=== PATIENT | female | born 1990 | race Caucasian/White ===

== ENCOUNTER 2025-05-19 14:29 | Outpatient (CLI) | payer BC, SELFPAY ==
--- OUTSIDE RECORDS SUMMARY | 2025-05-19 14:32 | XMS_ITS | Clinical Summary ---
Author Organization [facility] Address [address] [place] [address] Phone Care Team Providers Care Disk Recordist Name Role Phone John Painter MD Primary Care Provider [phone] Griffin Steve MD Unavailable Allergies Active Allergy Reactions Criticality Noted Date Comments Doxycycline Vomiting 05/16/2025 Lisinopril Diarrhea 07/24/2022 AFFECTED YOUR MOOD Metoprolol Itching,Other (see Comments) 05/16/2025 Constant coughing Medications albuterol 108 (90 Base) MCG/ACT Aerosol Solution take 2 Puffs by inhalation every 6 hours as needed for Wheezing or Cough. 1 g 1 11/18/19 24 Active fluticasone (FLONASE) 50 MCG/ACT Suspension 1 [place] by Nasal route daily. Use in each nostril as directed. 16 g 09/26/20 24 Active famotidine (PEPCID) 20 MG TabletIndicatio ns:Gastroesopha geal reflux disease, unspecified whether esophagitis present Take 1 Tablet by mouth 2 times daily. 90 Tablet 3 11/15/19 25 Active Additional Information Patient not taking.Reported on 05/17/2025 desipramine (NOPRAMIN) 10 MG Tablet TAKE 1 TABLET BY MOUTH EVERY NIGHT 30 Tablet 2 12/12/19 25 Active Additional Information Patient not taking.Reported on 05/17/2025 valACYclovir (VALTREX) 1 GM TabletIndicatio ns:Herpes simplex infection Take 1 Tablet by mouth daily. 90 Tablet 3 01/11/20 25 Active hydroCHLOROthia zide (MICROZIDE) 12.5 MG CapsuleIndicati ons:Primary hypertension Take 1 Capsule by mouth daily. 90 Capsule 3 01/11/20 25 Active Breo Ellipta 200-25 MCG/ACT AEROSOL POWDER, BREATH ACTIVATED take 1 Puff by inhalation daily. 02/25/20 25 Active triamcinolone (KENALOG) 0.1 % CreamIndication s:Rash/skin eruption Application Site: Apply to affected area twice daily for fourteen days 45 g 03/24/20 Active Additional Information Patient not taking.Reported on 05/17/2025 azelastine (ASTELIN) 0.1 % Solution 05/15/20 Active doxycycline hyclate (VIBRAMYCIN) 100 MG Capsule 05/15/20 25 Active ondansetron (ZOFRAN-ODT) 4 MG TABLET DISPERSIBLEIndi cations:Nausea Take 1 Tablet by mouth every 8 hours as needed for Nausea - 1st line. 10 Tablet 05/17/20 25 Active hydrOXYzine (ATARAX) 25 MG TabletIndicatio ns:Anxiety TAKE 1 TABLET BY MOUTH EVERY 8 HOURS NEEDED FOR ANXIETY 30 Tablet 05/18/20 25 Active hydrOXYzine (ATARAX) 25 MG TabletIndicatio ns:Anxiety Take 1 Tablet by mouth every 8 hours as needed for Anxiety. 30 Tablet 01/11/20 25 025 Discontinued Active Problems Problem Noted Date Diagnosed Date URI, acute 09/26/2024 Tick bite of calf, left, initial encounter 05/04 Otitis media 06/26/2021 Epigastric pain 04/22/2021 Irritable bowel syndrome wit h both constipation and diarrhea 09/28/2020 Vitamin D deficiency 09/15/2020 B12 deficiency 09/15/2020 Hyperlipidemia 09/15/2020 Tobacco abuse 09/13/2020 Hyperglycemia 09/13/2020 Obesity (BMI 30-39.9) 09/13/2020 Genital herpes simplex 09/13/2020 Genital lesion, female 09/13/2020 Gastroesophageal reflux disease 09/13/2020 Mild intermittent asthma 09/13/2020 Pain of upper abdomen 09/13/2020 Tachycardia 09/13/2020 Herpes simplex type 2 infection 07/14/2017 Dysuria 06/28/2013 Thoracic outlet syndrome 05/03/2013 HTN (hypertension) 12/30/2012 Obesity Labile blood pressure Carpal tunnel syndrome Overview (04/27/2012): Right wrist Encounters Date Type Department Care Team Description 05/17/2025 9:00 AM CDT Office Visit [facility] [place] [address] Gertrude Coon, GROUND WATER CONTRACTOR, CUSTOMER SOLUTIONS SUPERVISOR Increased frequency of urination (Primary Dx); Nausea; Burning with urination Discharge Disposition: Discharged to home or Selfcare 05/17/2025 [facility] [place] [address] John Painter MD Medication Refill 05/17/2025 Travel 05/16/2025 Nurse Triage [facility] [address] [place] [phone] John Painter MD Advice Only; Nasal Congestion; Urinary Frequency 03/24/2025 9:30 AM CDT Office Visit [facility] [address] [place] [address] Eugenie Ny, GROUND WATER CONTRACTOR, CUSTOMER SOLUTIONS SUPERVISOR Rash/skin eruption (Primary Dx); Insect bite, initial encounter Discharge Disposition: Discharged to home or Selfcare 03/24/2025 Travel from Last 3 Months Immunizations Immunization Administration Dates Next Due Covid-19, Mrna, Lnp-s, Pf, 3 0 Mcg/0.3 Ml Dose (Waveborn) 06/22/2021 DTAP VACCINE 06/08/1996, 2,07/27/1991,1990,03/17/1991 HIB Vaccine (PRP-T) 06/26/1992, 1,05/25/1991,1990 Hepatitis B Vaccine 10/21/2001,05/25/2001,2000 Influenza Vaccine, Quadrivalent, PF 09/13/2020 Influenza, Recombinant, Quadrivalent,injectable, Pf 12/11/2021 MMR Vaccine 06/08/1996,06/26/1992 OPV 06/08/1996, 2,05/25/1991,1990 Family History Medical History Relation Name Comments Cancer Father Kedar Fitch skin Diabetes Father Kedar Fitch Glaucoma Father Kedar Fitch Hypertension Father Kedar Fitch Other-comment Father Kedar Fitch ANIRIDIA Thyroid Disease Father Kedar Fitch Heart Disease Maternal Grandfather Cancer Maternal Grandmother Nika [place] breast Cancer Mother Hortencia Fitch ovarian Hypertension Mother Hortencia Fitch Stroke Mother Hortencia Fitch Thyroid Disease Mother Hortencia Fitch Heart Disease Paternal Grandfather Cancer Paternal Grandmother Nika Fitch lung ca ncer Relation Name Status Comments Father Kedar Fitch Alive Maternal Grandfather Maternal Grandmother Nika [place] Mother Hortencia Fitch Alive Paternal Grandfather Paternal Grandmother Nika Fitch Social History Tobacco Use Types Packs/Day Years Used Date Smoking Tobacco: Every Day Cigarettes 0.3 12 Smokeless Tobacco: Never Tobacco Cessation:Ready to Q uit: No; Counseling Given: Yes Alcohol Use Standard Drinks/Week Comments Yes 0 (1 standard drink = 0.6 oz pur e alcohol) rarely [employer] Utilities Answer Date Recorded In the past 12 months has [employer], gas, oil, or water AIT threatened to shut off services in your home? Yes 12/12/2024 Social Connection and Isolation Panel Answer Date Recorded In a typical week, how many times do you talk on the phone with family, friends, or neighbors? More than three times a week 12/12/2024 How often do you get togethe r with friends or relatives? Three times a week 12/12/2024 How often do you attend chur ch or pentecostal services? Never 12/12/2024 Do you belong to any clubs o r organizations such as anglican groups, unions, fraternal or athletic groups, or school groups? Yes 12/12/2024 How often do you attend meet ings of the clubs or organizations you belong to? 1 to 4 times per year 12/12/2024 Are you , , di vorced, , never , or living with a partner? Never 12/12/2024 AUDIT-C Answer Date Recorded Q1: How often do you have a drink containing alc ohol? Monthly or less 12/12/2024 Q2: How many drinks containi ng alcohol do you have on a typical day when you are drinking? 1 or 2 12/12/2024 Q3: How often do you have si x or more drinks on one occasion? Never 12/12/2024 Overall Financial Resource Strain (CARDIA) Answe r Date Recorded How hard is it for you to pa y for the very basics like food, housing, medical care, and heating? Somewhat hard 12/12/2024 PHQ-2 Answer Date Recorded Total Score - Questions 1-9 0 10/27 [facility] - Occupational Stress Questionnaire Answer Date Recorded Do you feel stress - tense, restless, nervous, or anxious, or unable to sleep at night because your mind is troubled all the time - these days? Only a little 12/12/2024 Exercise Vital Sign Answer Date Recorde d On average, how many days pe r week do you engage in moderate to strenuous exercise (like a brisk walk)? 2 days 12/12/2024 On average, how many minutes do you engage in exercise at this level? 40 min 12/12/2024 Hunger Vital Sign Answer Date Recorded Within the past 12 months, y ou worried that your food would run out before you got the money to buy more. Never true 12/12/19 25 Within the past 12 months, t he food you bought just didn't last and you didn't have money to get more. Never true 12/12/2024 PRAPARE - Transportation Answer Date Re corded In the past 12 months, has l ack of transportation kept you from medical appointments or from getting medications? No 11/26 In the past 12 months, has l ack of transportation kept you from meetings, work, or from getting things needed for daily living? No 12/12/2024 Housing Stability Vital Sign Answer Perfecto e Recorded In the last 12 months, was t here a time when you were not able to pay the mortgage or rent on time? Patient declined 02/16/20 24 Number of Places Lived in the Last Year Not on f ile 02/16/2024 In the last 12 months, was t here a time when you did not have a steady place to sleep or slept in a usp (including now)? Patient declined 02/16/2024 Housing Stability Vital Sign Answer Perfecto e Recorded In the last 12 months, was t here a time when you were not able to pay the mortgage or rent on time? Yes 12/12/2024 In the past 12 months, how m any times have you moved where you were living? 1 12/12/2024 At any time in the past 12 m [facility], were you homeless or living in a usp (including now)? No 12/12/2024 Education Answer Date Recorded What is the highest level of school you have completed or the highest degree you have received? 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 Gender Identity Not on file Sexual Orientation Not on file Last Filed Vital Signs Vital Sign Reading Time Taken Comments Blood Pressure 136/88 05/17/2025 9:04 AM CDT Pulse 92 05/17/2025 9:04 AM CDT Temperature 36.4 C (97.5 F) 05/17/2025 9:04 AM CDT Respiratory Rate 18 05/17/2025 9:04 AM CDT Oxygen Saturation 98% 05/17/2025 9:04 AM CDT Inhaled Oxygen Concentration - - Weight 96.5 kg (212 lb 12.8 oz) 05/17/2025 9:04 AM CDT Height 160 cm (5' 3) 05/17/2025 9:04 AM CDT Body Mass Index 37.7 05/17/2025 9:04 AM CDT Plan of Treatment Upcoming Encounters Date Type Department Care Team (Late st Contact Info) Description 07/31/2025 1:00 PM CDT Office Visit [facility] [place] [address] [place] [phone] John Painter MD [address] [address] Health Maintenance Due Date Last Done Comments DTaP/Tdap/Td Immunization (6 - Tdap) 2001 06/08/1996, 06/26/1992, 07/27/1991, Additional history exists Human Papillomavirus (HPV) Immunization (1 - 3-dose series) 2005 Pneumococcal Immunization Combined (1 of 2 - PCV) 2009 Pap Smear 2011 Cervical Cancer Screening (CCS) 2020 HPV/Cotest 2020 SARS-COV-2 Immunization (3 - season) 2024 07/13/2021, 06/22/2021 Influenza Immunization (#1) 2025 12/11/2021, 1 11/13/2019 Respiratory Syncytial Virus (RSV) Immunization (Adult) (1 - 1-dose 75+ series) 2065 Hepatitis B Immunization Completed 001, 05/25/2001, 04/20/2001 Hepatitis C Virus (HCV) Screening Completed 06/24/2023 Meningococcal Immunization (ACWY) Aged Out No longer eligible based on patient's age to complete this topic Rotavirus Immunization Aged Out No lo nger eligible based on patient's age to complete this topic Procedures Procedure Name Priority Date/Time Associated Diagnosis Comments URINALYSIS REFLEX IF INDICATED BY ABNORMAL RESULTS Routine 05/17/2025 10:29 AM CDT Burning with urination THYROID SCREEN WITH REFLEX Routine 05/17/2025 9:37 AM CDT Fatigue, unspecified type CBC WITH AUTO DIFFERENTIAL Routine 05/17/2025 9:37 AM CDT Fatigue, unspecified type FOLIC ACID (FOLATE) Routine 05/17/2025 9 :37 AM CDT Fatigue, unspecified type VITAMIN B12 Routine 05/17/2025 9:37 AM CDT Fatigue, unspecified type VITAMIN D, 25 HYDROXY TOTAL Routine 05/17/2025 9:37 AM CDT Fatigue, unspecified type THYROID SCREEN WITH REFLEX Routine 05/17/2025 9:37 AM CDT Fatigue, unspecified type COMPLETE BLOOD COUNT (CBC) WITH DIFF Routine 05/17/2025 9:37 AM CDT Fatigue, unspecified type CMP (COMPREHENSIVE METABOLIC PANEL) Routine 05/17/2025 9:37 AM CDT Fatigue, unspecified type HEPATITIS C ANTIBODY Routine 06/24/2023 3:12 PM CDT Exposure to STD from Last 3 Months or Most Recently Relevant to Health Maintenance Results * URINALYSIS REFLEX IF INDICATED BY ABNORMAL RESULTS (05/17/2025 10:29 AM CDT) SPECIFIC GRAVITY 1.010 1.003 - 1.030 05/17/2025 12:37 PM CDT [facility] URINE PH 8.0 5.0 - 9.0 05/17/2025 12:37 PM CDT [facility] WBC ESTERASE Negative Negative 05/17/2025 12:37 PM CDT [facility] NITRITE Negative Negative 05/17/2025 12:37 PM CDT [facility] PROTEIN, RANDOM URINE Negative Negative 05/17/2025 12:37 PM CDT [facility] URINE GLUCOSE, QUAL Negative Negative 05/17/2025 12:37 PM CDT [facility] URINE KETONES Negative Negative 05/17/2025 12:37 PM CDT [facility] UROBILINOGEN Normal Normal mg/dL 05/17/2025 12:37 PM CDT [facility] URINE BLOOD Negative Negative makayla/ul 05/17/2025 12:37 PM CDT [facility] URINALYSIS COLOR Light Yellow 2024 12:37 PM CDT [facility] URINALYSIS CLARITY Clear 05/17/2025 12:37 PM CDT [facility] Urine URINE SPECIMEN OBTAINED BY CLEAN CATCH PROCEDURE / Unknown Non-Phlebotomy Collection / Unknown 05/17/2025 10:29 AM CDT 05/17/2025 10:29 AM CDT January N Jaymie GROUND WATER CONTRACTOR, CUSTOMER SOLUTIONS SUPERVISOR URINE ORDERABLES Final Re sult Performing Organization Address City/[facility] Co de Phone Number [facility] [address] [place] [address] * VITAMIN D, 25 HYDROXY TOTAL (05/17/2025 9:37 AM CDT) VITAMIN D, 25 HYDROX 21.1 ng/mL 05/17/2025 10:43 AM CDT [facility] Blood Venipuncture / Unknown 05/17/2025 9:37 AM CDT 05/17/2025 9:48 AM CDT Narrative [facility] - 05/17/2025 10:43 AM CDT Published reference ranges for Vitamin D vary depending on time and place and method of testing, and on patient's age, sex, ethnicity and levels of other measured analytes such as parathormone, calcium and phosphorus. The result should be evaluated in conjunction with clinical findings and suspicions. [place] of [employer] and Endocrine Clinical Practice Guidelines: Status Vitamin D levels (ng/mL) Deficient <=20 At risk of inadequacy 21-29 Sufficient 30-100 Centers of Disease Control and Prevention Guidelines: Status Vitamin D levels (ng/mL) Deficient <13 At risk of inadequacy 13-19 Sufficient 20-50 Possibly harmful >50 References: [place] [employer], 2010 Dietary reference intakes for calcium and vitamin D. [place]: The National Academies Press. Davidson M, Jose N, Lois MÁRQUEZ, et al., Evaluation, treatment, and prevention of Vitamin D deficiency: an Endocrinology Clinical Practice Guideline. JCEM 2011 96: 7 4910-3304. Ned A, Sahil C, Sissy D, et al., Vitamin D Status: [place], 2251-0130, [facility] data brief, no. 59, MD [place]: National Center for Health Statistics. 2011. us Eugenie Ny GROUND WATER CONTRACTOR, CUSTOMER SOLUTIONS SUPERVISOR CHEMISTRY ORDERABLES Fin al Result [facility] [address] [place] [address] * THYROID SCREEN WITH REFLEX (05/17/2025 9:37 AM CDT) TSH 0.922 0.300 - 5.000 mIU/L 05/17/2025 10:33 AM CDT [facility] Blood Venipuncture / Unknown 05/17/2025 9:37 AM CDT 05/17/2025 9:48 AM CDT Eugenie Ny GROUND WATER CONTRACTOR, CUSTOMER SOLUTIONS SUPERVISOR CHEMISTRY ORDERABLES Fin al Result Performing Organization Address [facility] Co de Phone Number [facility] [address] [place] [address] * (ABNORMAL) CBC WITH AUTO DIFFERENTIAL (05/17/2025 9:37 AM CDT) Pathologist [facility] WBC 12.64(H) 4.00 - 12.00 10(3)/mcL 05/17/2025 9:52 AM CDT [facility] RBC 4.84 3.80 - 5.30 10(6)/[facility] 05/17/2025 9:52 AM CDT [facility] HEMOGLOBIN (HGB) 14.1 12.0 - 15.8 g/dL 05/17/2025 9:52 AM CDT [facility] HEMATOCRIT (HCT) 43.2 36.0 - 47.0 % 05/17/2025 9:52 AM CDT [facility] MCV 89.3 82.0 - 96.0 fL 05/17/2025 9:52 AM CDT [facility] MCH 29.1 26.0 - 34.0 pg 05/17/2025 9:52 AM CDT [facility] MCHC 32.6 31.0 - 36.0 g/dL 05/17/2025 9:52 AM CDT [facility] PLATELET COUNT 379 140 - 440 10(3)/[facility] 05/17/2025 9:52 AM CDT [facility] RDW 15.9(H) 11.8 - 15.5 % 05/17/2025 9:52 AM CDT [facility] MPV 9.8 9.7 - 12.4 fL 05/17/2025 9:52 AM CDT [facility] NEUTROPHILS 70.4 47.0 - 73.0 % 05/17/2025 9:52 AM CDT [facility] LYMPHOCYTES 23.2 18.0 - 42.0 % 05/17/2025 9:52 AM CDT [facility] MONOCYTES 4.5 4.0 - 12.0 % 05/17/2025 9:52 AM CDT [facility] EOSINOPHILS 1.2 0.0 - 5.0 % 05/17/2025 9:52 AM CDT [facility] BASOPHILS 0.2 0.0 - 1.0 % 05/17/2025 9:52 AM CDT [facility] IMMATURE GRANULOCYTE 0.5(H) 0.0 - 0.4 % 05/17/2025 9:52 AM CDT [facility] Comment:Immature Granulocyte s includes Metamyelocytes, Myelocytes, and Promyelocytes. ABSOLUTE NEUTROPHILS 8.90(H) 1.60 - 7.70 10(3)/[facility] 05/17/2025 9:52 AM CDT [facility] ABSOLUTE LYMPHOCYTES 2.93 1.30 - 3.20 10(3)/[facility] 05/17/2025 9:52 AM CDT [facility] ABSOLUTE MONOCYTES 0.57 0.20 - 1.00 10(3)/[facility] 05/17/2025 9:52 AM CDT [facility] ABSOLUTE EOSINOPHIL 0.15 0.00 - 0.40 10(3)/[facility] 05/17/2025 9:52 AM CDT [facility] ABSOLUTE BASOPHILS 0.03 0.00 - 0.10 10(3)/[facility] 05/17/2025 9:52 AM CDT [facility] ABSOLUTE IMMATURE GRANULOCYTE 0.06(H) 0.00 - 0.03 10 (3) mcL. 05/17/2025 9:52 AM CDT [facility] NRBC PER 100 WBC 0 05/17/20 9:52 AM CDT [facility] Blood Venipuncture / Unknown 05/17/2025 9:37 AM CDT 05/17/2025 9:49 AM CDT Eugenie Ny GROUND WATER CONTRACTOR, CUSTOMER SOLUTIONS SUPERVISOR HEMATOLOGY ORDERABLES Fi nal Result Performing Organization Address City/[facility]/ZIP Co de Phone Number [facility] [address] [place] [address] * VITAMIN B12 (05/17/2025 9:37 AM CDT) VITAMIN B12 363 213 - 816 pg/mL 05/17/2025 10:43 AM CDT [facility] Blood Venipuncture / Unknown 05/17/2025 9:37 AM CDT 05/17/2025 9:48 AM CDT Eugenie Ny GROUND WATER CONTRACTOR, CUSTOMER SOLUTIONS SUPERVISOR CHEMISTRY ORDERABLES Fin al Result Performing Organization Address City/[facility]/ZIP Co de Phone Number [facility] [address] [place] [address] * FOLIC ACID (FOLATE) (05/17/2025 9:37 AM CDT) FOLATE 10.6 7.0 - 31.4 ng/mL 05/17/2025 10:43 AM CDT [facility] IS THE PATIENT REQUIRED TO BE FASTING? No 05/17/2025 10:43 AM CDT [facility] Blood Venipuncture / Unknown 05/17/2025 9:37 AM CDT 05/17/2025 9:48 AM CDT Eugenie Ny GROUND WATER CONTRACTOR, CUSTOMER SOLUTIONS SUPERVISOR CHEMISTRY ORDERABLES Fin al Result [facility] [address] [place] [address] * (ABNORMAL) CMP (COMPREHENSIVE METABOLIC PANEL) (05/17/2025 9:37 AM CDT) SODIUM 139 136 - 145 mmol/L 05/17/2025 10:10 AM CDT [facility] POTASSIUM 3.9 3.5 - 5.1 mmol/L 05/17/2025 10:10 AM CDT [facility] CHLORIDE 104 98 - 107 mmol/L 05/17/2025 10:10 AM CDT [facility] CO2, VENOUS 26 22 - 30 mmol/L 05/17/2025 10:10 AM CDT [facility] ANION GAP 12.9 <18.0 mmol/L 05/17/2025 10:10 AM CDT [facility] GLUCOSE 94 70 - 99 mg/dL 05/17/2025 10:10 AM CDT [facility] BUN 7 5 - 18 mg/dL 05/17/2025 10:10 AM CDT [facility] CREATININE, BLOOD 0.56(L) 0.60 - 1.00 mg/dL 05/17/2025 10:10 AM CDT [facility] BUN/CREATININE RATIO 13 12 - 20 ratio 05/17/2025 10:10 AM CDT [facility] TOTAL PROTEIN 7.6 6.0 - 8.0 g/dL 05/17/2025 10:10 AM CDT [facility] ALBUMIN 4.5 3.5 - 5.0 g/dL 05/17/2025 10:10 AM CDT [facility] A/G RATIO 1.5 1.0 - 2.2 05/17/2025 10:10 AM CDT [facility] CALCIUM 9.1 8.7 - 10.5 mg/dL 05/17/2025 10:10 AM CDT [facility] T BILI 0.3 0.2 - 1.2 mg/dL 05/17/2025 10:10 AM CDT [facility] SGOT (AST) 20 <43 U/L 05/17/2025 10:10 AM CDT [facility] SGPT (ALT) 24 <56 U/L 05/17/2025 10:10 AM CDT [facility] ALKALINE PHOSPHATASE 70 40 - 150 U/L 05/17/2025 10:10 AM CDT [facility] IS THE PATIENT REQUIRED TO BE FASTING? No 05/17/2025 10:10 AM CDT [facility] GFR, ESTIMATED >60 >=60 05/17/2025 10:10 AM CDT [facility] Comment: Creatinine Clearance is the preferred criteria for selecting drug dose adjustments in renally impaired patients. The GFR is provided as additional pertinent clinical information. GFR is reported in mL/min/1.73 sq m. Calculation based on the Chronic Kidney Disease Epidemiology Collaboration (CKD- EPI) equation refit without adjustment for race. GFR, EST. >60 >=60 025 10:10 AM CDT [facility] GFR, EST. NONAFRICAN >60 >=60 05/17/2025 10:10 AM CDT [facility] Blood Venipuncture / Unknown 05/17/2025 9:37 AM CDT 05/17/2025 9:48 AM CDT us Eugenie Ny GROUND WATER CONTRACTOR, CUSTOMER SOLUTIONS SUPERVISOR CHEMISTRY ORDERABLES Fin al Result [facility] [address] [place] [address] * HEPATITIS C ANTIBODY (06/24/2023 3:12 PM CDT) hepatitis C antibody 0.11 <1 S/[facility] ARCH [id number] B 06/24/2023 11:07 PM CDT [facility] Comment: Signal/Cutoff ratio < 0.79 is Nondetected Signal/Cutoff ratio 0.80-0.99 is Grayzone Signal/Cutoff ratio > 0.99 is Detected Supplemental assays are recommended if signal/cutoff ratio is >/=1.00. Signal/cutoff ratio result >/= 5.00 is 97% predictive of positivity for recombinant immunoblot assay (RIBA) and will be reported to the [place] Department of Public Health as required. Blood Venipuncture / Unknown 06/24/2023 3:12 PM CDT 06/24/2023 4:48 PM CDT us Thierry Zuñiga APRN, CUSTOMER SOLUTIONS SUPERVISOR CHEMISTRY ORDERA BLES Final Result [facility] [address] [place] [address], from Last 3 Months or Most Recently Relevant to Health Maintenance Insurance [facility] Advance Directives * Full Code (Latest Code Status on File) Date Activated Date Inactivated Comments 12/30/2012 4:06 PM 11/03/2017 8:20 AM Care Teams Disk Recordist Relationship Specialty Start Date End Date John Painter MD #[address] [address] PCP - General Family Medicine 09/13/20 Griffin Steve MD [id number] [address] Consulting Physician General Surgery 03/04/24
--- OUTSIDE RECORDS SUMMARY | 2025-05-19 14:32 | XMS_ITS | Encounter Summary ---
Author Organization [facility] Address [address] [place] [address] Phone Care Team Providers Care Qm Nurse Name Role Phone John Painter MD Primary Care Provider +1 -[phone] Griffin Steve MD Unavailable +1- [phone] Reason for Visit * Reason Comments Medication Refill Encounter Details Date Type Department Care Team (Late Contact Info) Description 02/28/2022 [facility]ill [facility] #2 [place] [address] John Painter MD #[address] [address] Medication Refill Social History Tobacco Use Types Packs/Day Years Used Date Smoking Tobacco: Every Day Cigarettes 0.5 12 Smokeless Tobacco: Never Alcohol Use Standard Drinks/Week Comments Yes 0 (1 standard drink = 0.6 oz pur e alcohol) rarely Sexually Active Control Partners Comments Yes Condom, Male Condom Male Comments No Sex and Gender Information Value Date Recorded Sex Assigned at Not on file 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 Gender Identity Not on file Sexual Orientation Not on file documented as of this encounter Plan of Treatment Upcoming Encounters Date Type Department Care Team (Late st Contact Info) Description 07/31/2025 1:00 PM CDT Office Visit [facility] - Family [facility] #2 [place] [address] John Painter MD #2 [facility] [address] [place] [address] documented as of this encounter Visit Diagnoses Not on filedocumented in this encounter Additional Health Concerns Assessment Noted Time PHQ-9 Depression Total Score: 0 07/10/20 17 1:18 PM CDT documented as of this encounter Care Teams Qm Nurse Relationship Specialty Start Date End Date John Painter MD #2 [facility] [address] [place] [address] PCP - General Family Medicine 09/13/20 Griffin Steve MD #2 [facility] [address] [place] [address] Consulting Physician General Surgery 03/04/24 documented as of this encounter
--- OUTSIDE RECORDS SUMMARY | 2025-05-19 14:32 | XMS_ITS | Referral Summary ---
Author Organization [facility] Address [address] [place] [address] Care Team Providers Care Bobbin Collector Name Role Phone John Painter MD Primary Care Provider [phone] [phone] Allergies No known active allergies Medications No known medications Social History Tobacco Use Types Packs/Day Years Used Date Smoking Tobacco: Never Assessed Comments No Sex and Gender Information Value Date Recorded Sex Assigned at Not on file Legal Sex Female 8:24 AM CDT Gender Identity Not on file Sexual Orientation Not on file Last Filed Vital Signs Vital Sign Reading Time Taken Comments Blood Pressure 147/84 07/30/2021 1:00 PM CDT Pulse 75 07/30/2021 1:00 PM CDT Temperature 36.6 C (97.9 F) 07/30/2021 8:26 AM CDT Respiratory Rate 25 07/30/2021 1:00 PM CDT Oxygen Saturation 98% 07/30/2021 1:00 PM CDT Inhaled Oxygen Concentration - - Weight 86.2 kg (190 lb) 07/30/2021 8:27 AM CDT Height 160 cm (5' 3) 07/30/2021 8:27 AM CDT Body Mass Index 33.66 07/30/2021 8:27 AM CDT Plan of Treatment Not on file Insurance [facility] Care Teams Bobbin Collector Relationship Specialty Start Date End Date John Painter MD [address] [place] [address] PCP - General 07/30/21
--- OUTSIDE RECORDS SUMMARY | 2025-05-19 14:32 | XMS_ITS | Clinical Summary ---
Author Organization [facility] Address [address] [place] [address] Care Team Providers Care Spray Dyer Name Role Phone John Painter MD MPH Primary Care Provider +1 -[phone] Social History Tobacco Use Types Packs/Day Years Used Date Smoking Tobacco: Never Assessed Comments Unknown Sex and Gender Information Value Date Recorded Sex Assigned at Not on file Legal Sex Female 4:43 PM EDT Gender Identity Not on file Sexual Orientation Not on file Plan of Treatment Health Maintenance Due Date Last Done Comments Hepatitis B Vaccine (1 of 3 - 19+ 3-dose series) 2009 Influenza Vaccine (#1) 2025 Pneumococcal Vaccine: Peds ( 0 to 5 Years) and At-Risk Patients (6 to 49 Years) Aged Out No longer eligible b ased on patient's age to complete this topic Insurance [facility] [place] Care Teams Spray Dyer Relationship Specialty Start Date End Date John Painter MD MPH [address] [place] [address] PCP - General Family Medicine 07/20/24
--- OUTSIDE RECORDS SUMMARY | 2025-05-19 14:32 | XMS_ITS | Encounter Summary ---
Author Organization [facility] Address [address] [place] [address] Phone Care Team Providers Care Health Record Technician Name Role Phone John Pianter MD Primary Care Provider [phone] [phone] Griffin Steve MD Unavailable [phone]- [phone] Reason for Visit * Reason Comments Medication Refill Encounter Details Date Type Department Care Team (Late st Contact Info) Description 12/09/2024 Refill [facility] - Family Medicine [facility] #2 [place] [address] Eugenie Ny, ACCOUNT CONSULTANT, SPORTS EQUIPMENT RACKER #2 [place] [address] Medication Refill Social History Tobacco Use Types Packs/Day Years Used Date Smoking Tobacco: Every Day Cigarettes 0.3 12 Smokeless Tobacco: Never Alcohol Use Standard Drinks/Week Comments Yes 0 (1 standard drink = 0.6 oz pur e alcohol) rarely [facility] Utilities Answer Date Recorded In the past 12 months has e electric, gas, oil, or water company threatened to shut off services in your [...] often do you attend chur ch or roman catholic services? Never 12/12/2024 Do you belong to any clubs o r organizations such as hinduism groups, unions, fraternal or athletic groups, or [...] Total Score - Questions 1-9 0 10/27 [facility] Occupat ional Health - Occupational Stress [...] place to sleep or slept in a prison (including now)? Patient declined 02/16/2024 Housing Stability [...] any time in the past 12 m [facility], were you homeless or living in a prison (including now)? No 12/12/2024 Education Answer Date Recorded What is the highest level of school you have completed or the highest degree you have received? Bachelor's degree (e.g., BA, AB, BS) 05/19/2023 Sexually Active Control Partners Comments Yes Male Condom Male Comments No Sex and Gender Information Value Date Recorded Sex Assigned at Not on file Legal Sex Female 3:17 AM RESIDENT CARE ASSISTANT Gender Identity Not on file Sexual Orientation Not on file documented as of this encounter Functional Status * AUDIT-C Score Answer Date of Assessment Author 1 12/12/2024 10:15 AM RESIDENT CARE ASSISTANT Jair Singh Ios * Q1: How often do you have a drink containing alcohol? Answer Date of Assessment Author Monthly or less 12/12/2024 10:15 AM RESIDENT CARE ASSISTANT Jair Al ton Ios * Q2: How many drinks containing alcohol do you have on a typical day when you are drinking? Answer Date of Assessment Author 1 or 2 12/12/2024 10:15 AM RESIDENT CARE ASSISTANT Jair Johnson ton Ios * Q3: How often do you have six or more drinks on one occasion? Answer Date of Assessment Author Bjorn 12/12/2024 10:15 AM RESIDENT CARE ASSISTANT [facility] Alex Childs documented as of this encounter Miscellaneous Notes * Telephone Encounter - Annie Thomason RN - 12/12/2024 8:52 AM CST Medication failed the protocol, provider to review and approve the medication order if appropriate. Requested Prescriptions Pending Prescriptions Disp Refills hydrOXYzine (ATARAX) 25 MG Tablet [Pharmacy Med Name: HYDROXYZINE HCL 25MG TABS (WHITE)] 30 Tablet 0 Sig: Take 1 Tablet by mouth every 8 hours as needed for Anxiety. Not Delegated - Off Protocol Failed - 12/12/2024 8:52 AM Failed - This refill cannot be delegated Passed - Visit with relevant provider in past 12 months or upcoming 90 days Recent Visits Date Type Provider Dept 11/15/24 Office Visit Eugenie Ny APRN, CNP [facility] 09/26/24 Telemedicine John Painter MD [facility] 09/19/24 Appointment John Painter MD [facility] 05/04/24 Telemedicine John Painter MD [facility] 03/29/24 Office Visit Thierry Zuñiga APRN, CNP [facility] 02/16/24 Office Visit Thierry Zuñiga APRN, [facility] Showing recent visits within past 365 days and meeting all other requirements Today's Visits Date Type Provider Dept 12/12/24 Appointment Eugenie Ny APRN, CLAUDIA [facility] Showing today's visits and meeting all other requirements Future Appointments Date Type Provider Dept 12/28/24 Appointment Eugenie Ny APRN, CLAUDIA [facility] Showing future appointments within next 90 days and meeting all other requirements DENT CARE ASSISTANT documented in this encounter Plan of Treatment Upcoming Encounters Date Type Department Care Team (Late st Contact Info) Description 07/31/2025 1:00 PM CDT Office Visit [facility] - Family Medicine - [place] #2 [place] [id number] John Painter MD #2 [facility] [address] [place] [address] documented as of this encounter Visit Diagnoses Diagnosis Anxiety Anxiety state, unspecified documented in this encounter Additional Health Concerns Assessment Noted Time PHQ-9 Depression Total Score: 0 11/15/19 25 3:22 PM RESIDENT CARE ASSISTANT documented as of this encounter Care Teams Health Record Technician Relationship Specialty Start Date End Date John Painter MD #2 [facility] [address] [place] [address] PCP - General Family Medicine 09/13/20 Griffin Steve MD #2 [facility] [address] [place] [address] Consulting Physician General Surgery 03/04/24 documented as of this encounter
--- OUTSIDE RECORDS SUMMARY | 2025-05-19 14:32 | XMS_ITS | Encounter Summary ---
Author Organization [facility] Address [address] [place] [address] Phone Care Team Providers Care Reconsignment Clerk Name Role Phone John Painter MD Primary Care Provider [phone] -[phone] Griffin Steve MD Unavailable [phone]- [phone] Reason for Visit * Reason Comments Medication Refill Encounter Details Date Type Department Care Team (Late st Contact Info) Description 05/06/2023 Refill [facility] [address] [place] [address] Thierry Zuñiga, COSMETICS MACHINE OPERATOR, CARBON CLEANER #[address] [address] Medication Refill Social History Tobacco Use Types [...] on file Legal Sex Female 3:17 AM IT SENIOR SOFTWARE ENGINEER JAVA Gender Identity Not on file Sexual Orientation Not on file documented as of this encounter Miscellaneous Notes * Telephone Encounter - Annie Thomason RN - 05/06/2023 2:51 PM CDT This was ordered more recently - please discontinue the acyclovir if appropriate. Medication failed the protocol, provider to review and approve the medication order if appropriate. Requested Prescriptions Pending Prescriptions Disp Refills valACYclovir (VALTREX) 1 GM Tablet [Pharmacy Med Name: VALACYCLOVIR 1GM TABLETS] 21 Tablet 0 Sig: TAKE 1 TABLET BY MOUTH THREE TIMES DAILY FOR 7 DAYS Not Delegated - Herpes Agents Protocol Failed - 05/06/2023 9:20 AM Failed - This refill cannot be delegated Failed - Active on medication list Passed - Visit with relevant provider in past 12 months or upcoming 90 days Recent Visits Date Type Provider Dept 10/06/22 Office Visit Thierry Zuñiga APRN, [facility]22 Office Visit Thierry Zuñiga APRN, CLAUD[facility] Showing recent visits within past 365 days and meeting all other requirements Future Appointments No visits were found meeting these conditions. Showing future appointments within next 90 days and meeting all other requirements documented in this encounter Plan of Treatment Upcoming Encounters Date Type Department Care Team (Late st Contact Info) Description 07/31/2025 1:00 PM CDT Office Visit [facility] Group - Family Medicine [facility] #2 [place] [address] John Painter MD #[address] [address] documented as of this encounter Visit Diagnoses Diagnosis Herpes zoster without complication documented in this encounter Additional Health Concerns Assessment Noted Time PHQ-9 Depression Total Score: 0 07/10/20 17 1:18 PM CDT documented as of this encounter Care Teams Reconsignment Clerk Relationship Specialty Start Date End Date John Painter MD #[address] [address] PCP - General Family Medicine 09/13/20 Griffin Steve MD #[address] [address] Consulting Physician General Surgery 03/04/24 documented as of this encounter
--- OUTSIDE RECORDS SUMMARY | 2025-05-19 14:32 | XMS_ITS | Encounter Summary ---
Author Organization [facility] Address [address] [place] [address] Phone Care Team Providers Care Upper Marker Name Role Phone John Painter MD Primary Care Provider +1 -[phone] Griffin Steve MD Unavailable [phone]- [phone] Reason for Visit * Reason Comments Medication Refill Encounter Details Date Type Department Care Team (Late st Contact Info) Description 12/10/2024 Refill [facility] - Family Medicine [facility] #2 [place] [address] Eugenie Ny, DIESEL ENGINE ENGINEER, LEATHER HEEL BREASTER #2 [place] [address] Medication Refill Social History Tobacco Use Types Packs/Day Years Used Date Smoking Tobacco: Every Day Cigarettes 0.3 12 Smokeless Tobacco: Never Alcohol Use Standard Drinks/Week Comments Yes 0 (1 standard drink = 0.6 oz pur e alcohol) rarely [facility] Utilities Answer Date Recorded In the past [...] often do you attend chur ch or evangelical services? Never 12/12/2024 Do you belong to any clubs o r organizations such as sabianism groups, unions, fraternal or athletic groups, or [...] Total Score - Questions 1-9 0 10/27 [facility] Occupat ional Health - [...] place to sleep or slept in a long-term (including now)? Patient declined 02/16/2024 Housing Stability [...] any time in the past 12 m [facility], were you homeless or living in a long-term (including now)? No 12/12/2024 Education Answer Date Recorded What is the highest level of school you have completed or the highest degree you have received? Bachelor's degree (e.g., BA, AB, BS) 05/19/2023 Sexually Active Control Partners Comments Yes Male Condom Male Comments No Sex and Gender Information Value Date Recorded Sex Assigned at Not on file Legal Sex Female 3:17 AM GIS ENGINEER Gender Identity Not on file Sexual Orientation Not on file documented as of this encounter Functional Status * AUDIT-C Score Answer Date of Assessment Author 1 12/12/2024 10:15 AM GIS ENGINEER Jair Singh Ios * Q1: How often do you have a drink containing alcohol? Answer Date of Assessment Author Monthly or less 12/12/2024 10:15 AM GIS ENGINEER Jair Al ton Ios * Q2: How many drinks containing alcohol do you have on a typical day when you are drinking? Answer Date of Assessment Author 1 or 2 12/12/2024 10:15 AM GIS ENGINEER Jair Johnson ton Ios * Q3: How often do you have six or more drinks on one occasion? Answer Date of Assessment Author Never 12/12/2024 10:15 AM GIS ENGINEER [facility] Alex Jacksons documented as of this encounter Miscellaneous Notes * Telephone Encounter - Annie Thomason RN - 12/12/2024 11:00 AM CST Medication failed the protocol, provider to review and approve the medication order if appropriate. Requested Prescriptions Pending Prescriptions Disp Refills desipramine (NOPRAMIN) 10 MG Tablet [Pharmacy Med Name: DESIPRAMINE 10MG TABLETS] 30 Tablet 2 Sig: TAKE 1 TABLET BY MOUTH EVERY NIGHT Not Delegated - Tricyclic Agents Protocol Failed - 12/12/2024 11:00 AM Failed - This refill cannot be delegated Passed - Visit with relevant provider in past 12 months or upcoming 90 days Recent Visits Date Type Provider Dept 11/15/24 Office Visit Eugenie Ny APRN, CLAUDIA [facility] [place] 09/26/24 Telemedicine John Painter MD [facility] 09/19/24 Appointment John Painter MD [facility] 05/04/24 Telemedicine John Painter MD [facility] 03/29/24 Office Visit Thierry Zuñiga APRN, CNP [facility] 02/16/24 Office Visit Thierry Zuñiga APRN, CLAUD[facility] Showing recent visits within past 365 days and meeting all other requirements Today's Visits Date Type Provider Dept 12/12/24 Office Visit Eugenie Ny APRN, CLAUD[facility] [place] Showing today's visits and meeting all other requirements Future Appointments Date Type Provider Dept 12/28/24 Appointment Eugenie Ny APRN, CLAUD[facility] [place] Showing future appointments within next 90 days and meeting all other requirements ENGINEER documented in this encounter Plan of Treatment Upcoming Encounters Date Type Department Care Team (Late st Contact Info) Description 07/31/2025 1:00 PM CDT Office Visit [facility] - Family Medicine - [place] #2 [place] [address] John Painter MD #2 [facility] [address] [place] [address] documented as of this encounter Visit Diagnoses Not on filedocumented in this encounter Additional Health Concerns Assessment Noted Time PHQ-9 Depression Total Score: 0 11/15/19 25 3:22 PM GIS ENGINEER documented as of this encounter Care Teams Upper Marker Relationship Specialty Start Date End Date John Painter MD #2 [facility] [address] [place] [address] PCP - General Family Medicine 09/13/20 Griffin Steve MD #2 [facility] [address] [place] [address] Consulting Physician General Surgery 03/04/24 documented as of this encounter
--- OUTSIDE RECORDS SUMMARY | 2025-05-19 14:32 | XMS_ITS | Encounter Summary ---
Author Organization [facility] Address [address] [place] [address] Phone Care Team Providers Care Cable Assembler And Swager Name Role Phone John Painter MD Primary Care Provider [phone] -[phone] Griffin Steve MD Unavailable [phone]- [phone] Reason for Visit * Reason Comments Medication Refill Encounter Details Date Type Department Care Team (Late st Contact Info) Description 05/17/2025 Refill [facility] Group - Family Medicine [facility] #2 [place] [address] John Painter MD #[address] [address] Medication Refill Social History Tobacco Use Types Packs/Day Years Used Date Smoking Tobacco: Every Day Cigarettes 0.3 12 Smokeless Tobacco: Never Alcohol Use Standard Drinks/Week Comments Yes 0 (1 standard drink = 0.6 oz pur e alcohol) rarely [facility] Utilities Answer Date Recorded In the past [...] often do you attend chur ch or mandaen services? Never 12/12/2024 Do you belong to any clubs o r organizations such as yarsani groups, unions, fraternal or athletic groups, or [...] Total Score - Questions 1-9 0 10/27 [facility] of Occupat ional Health - Occupational [...] place to sleep or slept in a [facility] (including now)? Patient declined 02/16/2024 Housing Stability [...] any time in the past 12 m [facility], were you homeless or living in a [facility] (including now)? No 12/12/2024 Education Answer Date Recorded What is the highest level of school you have completed or the highest degree you have received? Bachelor's degree (e.g., BA, AB, BS) 05/19/2023 Sexually Active Control Partners Comments Yes Male Condom Male Comments No Sex and Gender Information Value Date Recorded Sex Assigned at Not on file Legal Sex Female 3:17 AM WALL COVERING CONTRACTOR Gender Identity Not on file Sexual Orientation Not on file documented as of this encounter Miscellaneous Notes * Telephone Encounter - Annie Thomason RN - 05/18/2025 8:23 AM CDT Medication failed the protocol, provider to review and approve the medication order if appropriate. Requested Prescriptions Pending Prescriptions Disp Refills hydrOXYzine (ATARAX) 25 MG Tablet [Pharmacy Med Name: HYDROXYZINE HCL 25MG TABS (WHITE)] 30 Tablet 0 Sig: Take 1 Tablet by mouth every 8 hours as needed for Anxiety. Not Delegated - Off Protocol Failed - 05/18/2025 8:23 AM Failed - This refill cannot be delegated Passed - Visit with relevant provider in past 12 months or upcoming 90 days Recent Visits Date Type Provider Dept 05/17/25 Office Visit Gertrude Coon, CAPTAIN/AIRLINE PILOT, GLASS CUT OFF SUPERVISOR [facility] 03/24/25 Office Visit Eugenie Ny M CAPTAIN/AIRLINE PILOT, GLASS CUT OFF SUPERVISOR [facility] 12/12/24 Office Visit Eugenie Ny CAPTAIN/AIRLINE PILOT, CLAUDIA [facility] 11/15/24 Office Visit Eugenie Ny CAPTAIN/AIRLINE PILOT, GLASS CUT OFF SUPERVISOR [facility] 09/26/24 Telemedicine John Painter MD [facility] 09/19/24 Appointment John Painter MD [facility] Showing recent visits within past 365 days and meeting all other requirements Future Appointments Date Type Provider Dept 07/31/25 Appointment John Painter MD [facility] Showing future appointments within next 90 days and meeting all other requirements documented in this encounter Plan of Treatment Upcoming Encounters Date Type Department Care Team (Late st Contact Info) Description 07/31/2025 1:00 PM CDT Office Visit [facility] Medical Group - Family Medicine [facility] #2 [place] [address] John Painter MD #[address] [address] documented as of this encounter Visit Diagnoses Diagnosis Anxiety Anxiety state, unspecified documented in this encounter Additional Health Concerns Assessment Noted Time PHQ-9 Depression Total Score: 0 11/15/19 3:22 PM WALL COVERING CONTRACTOR documented as of this encounter Care Teams Cable Assembler And Swager Relationship Specialty Start Date End Date John Painter MD #[address] [place] [address] PCP - General Family Medicine 09/13/20 Griffin Steve MD #[address] [phone] Consulting Physician General Surgery 03/04/24 documented as of this encounter
--- OUTSIDE RECORDS SUMMARY | 2025-05-19 14:32 | XMS_ITS | Clinical Summary ---
Author Organization [facility] Address [address] [place] [address] Care Team Providers Care Chief Lock Operator Name Role Phone John Painter MD Primary Care Provider [phone] -[phone] Allergies No known active allergies Medications No known medications Medical History Medical History Date Comments HTN (hypertension) GERD (gastroesophageal reflux disease) Tachycardia, unspecified IBS (irritable bowel syndrome) Social History Tobacco Use Types Packs/Day Years Used Date Smoking Tobacco: Never Assessed Comments No Sex and Gender Information Value Date Recorded Sex Assigned at Not on file Legal Sex Female 8:24 AM CDT Gender Identity Not on file Sexual Orientation Not on file Obstetrics History Last Filed Vital Signs Vital Sign Reading [...] Plan of Treatment Not on file Insurance [facility] Care Teams Chief Lock Operator Relationship Specialty Start Date End Date John Painter MD [address] [address] PCP - General 07/30/21
--- OUTSIDE RECORDS SUMMARY | 2025-05-19 14:32 | XMS_ITS | Encounter Summary ---
Author Organization [facility] Address [address] [place] [address] Phone Care Team Providers Care Senior Manager Mergers & Acquisitions Name Role Phone John Painter MD Primary Care Provider [phone] [phone] Griffin Steve MD Unavailable [phone]- [phone] Reason for Visit * Reason Comments Medication Refill Encounter Details Date Type Department Care Team (Late st Contact Info) Description 01/29/2022 Refill [facility] [address] [place] [address] John Painter MD [address] [address] Medication Refill Social History Tobacco Use Types [...] on file Legal Sex Female 3:17 AM SVP [employer] Gender Identity Not on file Sexual Orientation Not on file documented as of this encounter Miscellaneous Notes * Telephone Encounter - Annie Thomason RN - 01/29/2022 9:22 AM CDT Medication failed the protocol, provider to review and approve the medication order if appropriate. Requested Prescriptions Pending Prescriptions Disp Refills acyclovir (ZOVIRAX) 400 MG Tablet [Pharmacy Med Name: ACYCLOVIR 400MG TABLETS] 60 Tablet 0 Sig: TAKE 1 TABLET BY MOUTH TWICE DAILY Not Delegated - Herpes Agents Protocol Failed - 01/29/2022 5:52 AM Failed - This refill cannot be delegated Passed - Visit with relevant provider in past 12 months or upcoming 90 days Recent Visits Date Type Provider Dept 06/26/21 Office Visit John Painter MD [facility] 04/22/21 Office Visit [facility] MD [facility] Showing recent visits within past 365 days and meeting all other requirements Future Appointments No visits were found meeting these conditions. Showing future appointments within next 90 days and meeting all other requirements documented in this encounter Plan of Treatment Upcoming Encounters Date Type Department Care Team (Late st Contact Info) Description 07/31/2025 1:00 PM CDT Office Visit [facility] - Family Medicine [facility] [address] [place] [address] John Painter MD [address] [address] documented as of this encounter Visit Diagnoses Not on filedocumented in this encounter Additional Health Concerns Assessment Noted Time PHQ-9 Depression Total Score: 0 07/10/20 17 1:18 PM CDT documented as of this encounter Care Teams Senior Manager Mergers & Acquisitions Relationship Specialty Start Date End Date John Painter MD [address] [address] PCP - General Family Medicine 09/13/20 Griffin Steve MD [address] [address] Consulting Physician General Surgery 03/04/24 documented as of this encounter
--- OUTSIDE RECORDS SUMMARY | 2025-05-19 14:32 | XMS_ITS | Encounter Summary ---
Author Organization [facility] Address [address] [place] [address] Phone Care Team Providers Care Line Person Name Role Phone John Painter MD Primary Care Provider [phone] [phone] Griffin Steve MD Unavailable [phone]- [phone] Reason for Visit * Reason Comments Medication Refill Encounter Details Date Type Department Care Team (Late st Contact Info) Description 12/01/2021 Refill [facility] [address] [place] [address] John Painter MD [address] [address] Medication Refill Social History Tobacco Use Types [...] on file Legal Sex Female 3:17 AM UNIT OPERATOR Gender Identity Not on file Sexual Orientation Not on file documented as of this encounter Miscellaneous Notes * Telephone Encounter - Giana Membreno RN - 12/02/2021 9:52 AM CST Medication failed the protocol, provider to review and approve the medication order if appropriate. Requested Prescriptions Pending Prescriptions Disp Refills ergocalciferol (VITAMIN D) [address]177 UNIT Capsule [Pharmacy Med Name: VITAMIN D2 50,000IU (ERGO) CAP RX] 12 Capsule 0 Sig: TAKE 1 CAPSULE BY MOUTH 1 TIME A WEEK FOR 12 DOSES Vitamin Supplements (Adult) Protocol Failed - 12/01/2021 11:48 AM Failed - Active on medication list Failed - Vitamin D less than 1.25mg Passed - Visit with relevant provider in past 12 months or upcoming 90 days Recent Visits Date Type Provider Dept 06/26/21 Office Visit John Painter MD [facility] 04/22/21 Office Visit John Painter MD [facility] [place] 12/19/20 Office Visit John Painter MD [facility] Showing recent visits within past 365 days and meeting all other requirements Future Appointments No visits were found meeting these conditions. Showing future appointments within next 90 days and meeting all other requirements OPERATOR documented in this encounter Plan of Treatment Upcoming Encounters Date Type Department Care Team (Late st Contact Info) Description 07/31/2025 1:00 PM CDT Office Visit [facility] - Family Medicine - [place] [address] [place] [address] John Painter MD [address] [address] documented as of this encounter Visit Diagnoses Not on filedocumented in this encounter Additional Health Concerns Assessment Noted Time PHQ-9 Depression Total Score: 0 07/10/20 17 1:18 PM CDT documented as of this encounter Care Teams Line Person Relationship Specialty Start Date End Date John Painter MD [address] [address] PCP - General Family Medicine 09/13/20 Griffin Steve MD #[address] [address] Consulting Physician General Surgery 03/04/24 documented as of this encounter
--- OUTSIDE RECORDS SUMMARY | 2025-05-19 14:32 | XMS_ITS | Clinical Summary ---
Author Organization [facility] Address [address] [place] [address] Care Team Providers Care Flat Spring Assembler Name Role Phone John Painter MD Primary Care Provider [phone] Source Comments [facility],non-owned Affiliates and Associated Physician Practices is amultiple site organization consisting of ambulatory clinics and hospital sitesin [place], [place], [place] and [place]. This disclosure is being madepursuant to the Care Everywhere program and may not contain all information available regarding this patient. Last updated 18.[facility] Allergies Active Allergy Reactions Criticality Noted Date Comments Lisinopril Diarrhea 07/24/2022 Medications * Be aware that medications may not be up to date on this document. Alwaysverify current medications with the patient. albuterol HFA (PROVENTIL; VENTOLIN; PROAIR) 108 (90 Base) MCG/ACT inhaler Inhale 1 (one) puff to 2 (two) puffs by mouth 08/23/2021 Active desipramine (Norpramin) 10 MG tablet Take 1 (one) tablet by mouth at bedtime 90 tablet 3 07/23/2023 Active valACYclovir (Valtrex) 1 GM tablet Take 1 (one) tablet by mouth once daily 01/06/2024 Active albuterol HFA (Proventil; Ventolin; Proair) 108 (90 Base) MCG/ACT inhaler Inhale 2 (two) puffs by mouth every 6 hours as needed 11/18/2023 Active desipramine (Norpramin) 10 MG tablet Take 1 (one) tablet by mouth at bedtime 09/22/2022 Active Active Problems Problem Noted Date Diagnosed Date Mild intermittent asthma 12/11/2021 Hypertension 12/11/2021 Mixed hyperlipidemia 12/11/2021 Class 2 obesity due to exces s calories without serious comorbidity with body mass index (BMI) of 38.0 to 38.9 in adult 12/11/2021 Gastroesophageal reflux disease without esophagi tis 12/11/2021 Chronic RUQ pain 12/11/2021 Irritable bowel syndrome wit h both constipation and diarrhea 12/11/2021 Vitamin D deficiency 12/11/2021 Carpal tunnel syndrome 12/11/2021 Overview (12/11/2021): Right wrist B12 deficiency 09/15/2020 Tobacco abuse 09/13/2020 Herpes simplex type 2 infection 07/14/2017 Thoracic outlet syndrome 05/03/2013 Immunizations Immunization Administration Dates Next Due LiveAction primary monoval ent 12+ yr 0.3mL Purple cap 07/13/2021 DTaP VACCINE IM (6wk-6yrs) 06/08/1996,,07/27/1991,1990,03/17/1991 HEP B VACCINE, ADULT 3 DOSE 10/21/2001, 1,04/20/2001 HIB-PRP-T 4 DOSE 06/26/1992, 1,05/25/1991,1990 INFLUENZA VACCINE, QUADR. (F LUZONE; FLULAVAL; FLUARIX; AFLURIA QUADRIVALENT; 6MO+), 0.5 ML (IIV4) 09/13/2020 MMR 06/08/1996,06/26/1992 POLIO OPV 06/08/1996, 2,05/25/1991,1990 iNFLUENZA VACCINE, RECOM-MÁRQUEZ, QUADR. (FLUBLOCK QUADRIVALENT; 18Y+) (RIV4) 12/11/2021 Family History Medical History Relation Name Comments Bipolar Disorder Father Blindness Father also has anirid ia Cancer - Skin, Non Melanoma Father Hypertension Father Schizophrenia Father None Known Maternal Grandfather does no t know Alzheimer's Disease Maternal Grandmother Cancer - Breast Maternal Grandmother CVA Mother Cancer - Ovarian Mother Hyperlipidemia Mother Hypertension Mother None Known Paternal Grandfather does no t know Cancer - Lung Paternal Grandmother Diabetes - Type 2 Sister Relation Name Status Comments Father Alive Maternal Grandfather Maternal Grandmother Mother Alive Paternal Grandfather Paternal Grandmother Sister Social History Tobacco Use Types Packs/Day Years Used Date Smoking Tobacco: Every Day Cigarettes 0.3 14.6 Started: 10/03/2010 Smokeless Tobacco: Never Alcohol Use Standard Drinks/Week Comments Yes 0 (1 standard drink = 0.6 oz pur e alcohol) drinks occassional PHQ-2 Answer Date Recorded PHQ2 TOTAL SCORE 0 12/11/2021 Comments No Sex and Gender Information Value Date Recorded Sex Assigned at Female 09/27/2021 6:48 AM JOURNALIST Legal Sex Female 12:18 PM JOURNALIST Gender Identity Not on file Sexual Orientation Not on file Last Filed Vital Signs Vital Sign Reading Time Taken Comments Blood Pressure 178/127 01/14/2024 2:08 PM CDT Pulse 137 01/14/2024 2:08 PM CDT Temperature 37.6 C (99.7 F) 01/14/2024 2:08 PM CDT Respiratory Rate 17 10/03/2021 10:48 AM JOURNALIST Oxygen Saturation 99% 01/14/2024 2:08 PM CDT Inhaled Oxygen Concentration - - Weight 85.3 kg (188 lb) 01/14/2024 2:08 PM CDT Height 160 cm (5' 3) 01/14/2024 2:08 PM CDT Body Mass Index 33.3 01/14/2024 2:08 PM CDT Plan of Treatment Health Maintenance Due Date Last Done Comments DTAP/TDAP/TD VACCINES (6 - Tdap) 2001 06/08/1996, 06/26/1992, 07/27/1991, Additional history exists PNEUMOCOCCAL VACCINE (1 of 2 - PCV) 2009 PAP SMEAR 2011 HPV VACCINE (1 - 3-dose SCDM series) 2017 COVID-19 VACCINE (3 - season) 2024 07/13/2021, 06/22/2021 DEPRESSION SCREENING 10/26/2024 07/24/2022 INFLUENZA VACCINE (#1) 2025 12/11/2021, 2019 ZOSTER VACCINE (1 of 2) 2040 HIB VACCINE Completed 06/26/1992, 11/1990, 05/25/1991, Additional history exists HEPATITIS B VACCINE Completed 10/21/2001, 05/25/2001, 04/20/2001 HEPATITIS C SCREENING Completed 06/24/2023 HIV SCREENING Completed 06/24/2023 MENINGOCOCCAL (Group B) VACCINE SHARED DECISION-MAKING Aged Out No longer eligible based on patient's age to complete this topic MENINGOCOCCAL GROUPS A/C/Y/W VACCINE Aged Out No longer eligible based on patient's age to complete this topic Goals Goal Patient Goal Type Associated Problems Recent Progress Patient-Stated? Author Safety General On track( 023 8:06 AM CDT) Evelia Marie RN Note: Expected end date:ongoing Interventions: Use appropriate and safe transfer methods Keep personal items within easy reach Use some light at night in your room Keep walking paths clutter free and clear Medication Management General On track( 023 8:05 AM CDT) Evelia Marie RN Note: Expected end date: ongoing Interventions: Take all medications as prescribed Let your doctor know right away about any changes in your medications Make sure to request a refill of your medication at least one week prior to your last dose Try the following to manage nausea: Relax by doing activities that you enjoy Plan when to eat and drink Eat small meals and snacks Insurance [facility] * Guarantor: GIULIANA RANDALL Account Type Relation to Patient Date of Phone Billing Address Personal/Family [address] [place] [address] ANTHEM ANTHEM ANTHEM ANTHEM ANTHEM ANTHEM ANTHEM ANTHEM ANTHEM ANTHEM ANTHEM ANTHEM ANTHEM ANTHEM ANTHEM ANTHEM ANTHEM ANTHEM ANTHEM ANTHEM ANTHEM ANTHEM ANTHEM ANTHEM ANTHEM ANTHEM ANTHEM ANTHEM ANTHEM ANTHEM ANTHEM ANTHEM ANTHEM ANTHEM Care Teams Flat Spring Assembler Relationship Specialty Start Date End Date John Painter MD PCP - General 11/27/21
== END 2025-05-19 14:30 | disposition home or self-care (01) ==
LOC: ANHAUDIO 14:30
PROVIDERS: Visit Provider Otolaryngology Otolaryngology/Facial Plastic Surgery
DX: H90.11 Conductive hearing loss, unilateral, right ear, with unrestricted hearing on the contralateral side (principal)
CPT/HCPCS: 92557; 92567

== ENCOUNTER 2025-06-08 13:36 | Outpatient (CLI) | payer BC, SELFPAY ==
--- NOTE | ~2025-06-08 | CT_ITS ---
EXAMINATION: CT sinus wo con DATE: 06/08/2025 13:58 INDICATION: Chronic sinusitis TECHNIQUE: Computed tomography (CT) of the paranasal sinuses was performed without intravenous contra st. The dose-length product was 289.66 mGy-cm. Automated exposure control and iterative reconstructio n technique were employed. COMPARISON: None FINDINGS: There is a mucous retention cyst of the right maxillary sinus. Mastoids are pneumatized. No depressed skull fractures. No air-fluid levels. No significant nasal septal deviation. There are edgardo ateral hussein bullosa. IMPRESSION: 1. Mucous retention cyst right maxillary sinus measuring 1.5 cm. Reviewed, dictated and finalized at location A.
--- OUTSIDE RECORDS SUMMARY | 2025-06-08 13:40 | XMS_ITS | Encounter Summary ---
Author Organization [facility] Address [address] 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 Showing recent visits within past 365 days and meeting all other requirements Future Appointments No visits were found meeting these conditions. Showing future appointments within next 90 days and meeting all other requirements documented in this encounter Plan of Treatment Upcoming Encounters Date Type Department Care Team (Late st Contact Info) Description 07/31/2025 1:00 PM CDT Office Visit [facility] - Family Medicine [facility] [address] [place] [address] John Painter MD #[address] [address] documented as of this encounter Visit Diagnoses Diagnosis Herpes zoster without complication documented in this encounter Additional Health Concerns Assessment Noted Time PHQ-9 Depression Total Score: 0 07/10/20 17 1:18 PM CDT documented as of this encounter Care Teams Open Source Developer Relationship Specialty Start Date End Date John Painter MD #[address] [address] PCP - General Family Medicine 09/13/20 Griffin Steve MD #[address] [address] Consulting Physician General Surgery 03/04/24 documented as of this encounter
--- OUTSIDE RECORDS SUMMARY | 2025-06-08 13:40 | XMS_ITS | Encounter Summary ---
Author Organization [facility] Address [address] 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 Showing future appointments within next 90 days and meeting all other requirements documented in this encounter Plan of Treatment Upcoming Encounters Date Type Department Care Team (Late st Contact Info) Description 07/31/2025 1:00 PM CDT Office Visit [facility] - Family Medicine [facility] [address] [place] [address] John Painter MD #[address] [address] documented as of this encounter Visit Diagnoses Not on filedocumented in this encounter Additional Health Concerns Assessment Noted Time PHQ-9 Depression Total Score: 0 07/10/20 17 1:18 PM CDT documented as of this encounter Care Teams Security Sergeant Relationship Specialty Start Date End Date John Painter MD #[address] [address] PCP - General Family Medicine 09/13/20 Griffin Steve MD [address] [address] Consulting Physician General Surgery 03/04/24 documented as of this encounter
--- OUTSIDE RECORDS SUMMARY | 2025-06-08 13:40 | XMS_ITS | Clinical Summary ---
Author Organization [facility] Address [address] [place] [address] Phone Care Team Providers Care Washing Machine Mechanic Name Role Phone John Painter MD Primary Care Provider [phone] [phone] Griffin Steve MD Unavailable Allergies Active Allergy Reactions Criticality Noted Date Comments Doxycycline Vomiting 05/16/2025 Lisinopril Diarrhea 07/24/2022 AFFECTED YOUR MOOD Metoprolol Itching,Other (see Comments) 05/16/2025 Constant coughing Medications albuterol 108 (90 Base) MCG/ACT Aerosol Solution take 2 Puffs by inhalation every 6 hours as needed for Wheezing or Cough. 1 g 1 11/18/19 24 Active fluticasone (FLONASE) 50 MCG/ACT Suspension 1 Atkins by Nasal route daily. Use in each [...] 8 HOURS NEEDED FOR ANXIETY 30 Tablet 06/06/20 25 Active hydrOXYzine (ATARAX) 25 MG TabletIndicatio ns:Anxiety Take 1 Tablet by mouth every 8 hours as needed for Anxiety. 30 Tablet 01/11/20 25 025 Discontinued hydrOXYzine (ATARAX) 25 MG TabletIndicatio ns:Anxiety TAKE 1 TABLET BY MOUTH EVERY 8 HOURS NEEDED FOR ANXIETY 30 Tablet 05/18/20 25 025 Discontinued Active Problems Problem Noted [...] Encounters Date Type Department Care Team Description 06/06/2025 [facility]ill [facility] [place] [address] Eugenie Ny APRN, CLAUDIA Medication Refill 05/19/2025 Results Follow-Up [facility] [place] [address] Gertrude Coon APRN, CLAUDIA URINALYSIS REFLEX IF INDICATED BY ABNORMAL RESULTS 05/17/2025 9:00 AM CDT Office Visit [facility] [place] [address] Gertrude Coon APRN, CLAUDIA Increased frequency of urination (Primary Dx); Nausea; Burning with urination Discharge Disposition: Discharged to home or Selfcare 05/17/2025 Refill [facility] [place] [address] John Painter MD Medication Refill 05/17/2025 Travel 05/16/2025 Nurse Triage [facility] [address] [place] [address] John Painter MD Advice Only; Nasal Congestion; Urinary Frequency 03/24/2025 9:30 AM CDT Office Visit [facility] [place] [address] Brown, Eugenie M, GREASE BUFFER, CUT IN STATION OPERATOR Rash/skin eruption (Primary Dx); Insect bite, initial encounter Discharge Disposition: Discharged to home or Selfcare 03/24/2025 Travel from Last 3 Months Immunizations Immunization Administration Dates Next Due Covid-19, Mrna, Lnp-s, Pf, 3 0 Mcg/0.3 Ml Dose ([employer]) 06/22/2021 DTAP VACCINE 06/08/1996, 2,07/27/1991,1990,03/17/1991 HIB Vaccine [...] = 0.6 oz pur e alcohol) rarely C Utilities Answer Date Recorded In the past 12 months has [employer], gas, oil, or water [employer] threatened to shut off services in your [...] 12/12/2024 How often do you attend chur or faith services? Never 12/12/2024 Do you belong to any clubs o r organizations such as caodaism groups, unions, fraternal or athletic groups, or [...] Total Score - Questions 1-9 0 10/27 [facility] - Occupational Stress [...] No 12/12/2024 Housing Stability Vital Sign Answer Perfceto e Recorded In the last 12 months, [...] place to sleep or slept in a mcc (including now)? Patient declined 02/16/2024 Housing Stability [...] any time in the past 12 m [facility], were you homeless or living in a mcc (including now)? No 12/12/2024 Education Answer Date Recorded What is the highest level of school you have completed or the highest degree you have received? 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 [address] [place] [address] John Painter MD [address] [address] [address] Health Maintenance Due Date Last Done Comments DTaP/Tdap/Td Immunization (6 - Tdap) 2001 06/08/1996, 06/26/1992, 07/27/1991, Additional history exists Pneumococcal Immunization Combined (1 of 2 - PCV) 2009 Pap Smear 2011 Human Papillomavirus (HPV) Immunization (1 - 3-dose SCDM series) 2017 Cervical Cancer Screening (CCS) 2020 HPV/Cotest 2020 SARS-COV-2 Immunization ( - season) 2024 07/13/2021, 06/22/2021 Influenza Immunization [...] - 1.030 05/17/2025 12:37 PM CDT [facility] URINE PH 8.0 5.0 - 9.0 05/17/2025 12:37 PM CDT [facility] WBC ESTERASE Negative Negative 05/17/2025 12:37 PM CDT [facility] NITRITE Negative Negative 05/17/2025 12:37 PM CDT [facility] PROTEIN, RANDOM URINE Negative Negative 05/17/2025 12:37 PM CDT [facility] URINE GLUCOSE, QUAL Negative Negative 05/17/2025 12:37 PM CDT [facility] URINE KETONES Negative Negative 05/17/2025 12:37 PM CDT [facility] UROBILINOGEN Normal Normal mg/dL 05/17/2025 12:37 PM CDT [facility] URINE BLOOD Negative Negative makayla/ul 05/17/2025 12:37 PM CDT [facility] URINALYSIS COLOR Light Yellow 2024 12:37 PM CDT [facility] URINALYSIS CLARITY Clear 05/17/2025 12:37 PM CDT [facility] Urine URINE SPECIMEN OBTAINED BY CLEAN CATCH PROCEDURE / Unknown Non-Phlebotomy Collection / Unknown 05/17/2025 10:29 AM CDT 05/17/2025 10:29 AM CDT january N Oehl GREASE BUFFER, CUT IN STATION OPERATOR URINE ORDERABLES Final Re sult [facility] [address] [place] [address] * VITAMIN D, 25 HYDROXY TOTAL (05/17/2025 9:37 AM CDT) VITAMIN D, 25 HYDROX 21.1 ng/mL 05/17/2025 10:43 AM CDT [facility] Blood Venipuncture / Unknown 05/17/2025 9:37 AM CDT 05/17/2025 9:48 AM CDT Narrative [facility] - 05/17/2025 10:43 AM CDT Published reference ranges for Vitamin D vary depending on time and place and method of testing, and on patient's age, sex, ethnicity and levels of other measured analytes such as parathormone, calcium and phosphorus. The result should be evaluated in conjunction with clinical findings and suspicions. [place] of Medicine and Endocrine Clinical Practice Guidelines: Status Vitamin D levels (ng/mL) Deficient <=20 At risk of inadequacy 21-29 Sufficient 30-100 Centers of Disease Control and Prevention Guidelines: Status Vitamin D levels (ng/mL) Deficient <13 At risk of inadequacy 13-19 Sufficient 20-50 Possibly harmful >50 References: [place] of Medicine, 2010 Dietary reference intakes for calcium and vitamin D. [place]: The National Academies Press. Davidson M, Jose N, Lois MÁRQUEZ, et al., Evaluation, treatment, and prevention of Vitamin D deficiency: an Endocrinology Clinical Practice Guideline. JCEM 2011 96: 7 4068-4168. Ned A, Sahil C, Sissy D, et al., Vitamin D Status: [place], , [facility] data brief, no. 59, MD Giovanni: [facility] Statistics. 2011. Eugenie Ny APRN, CUT IN STATION OPERATOR CHEMISTRY ORDERABLES Fin al Result Performing Organization Address City/[facility]/ZIP Co de Phone Number [facility] [address] [place] [address] * THYROID SCREEN WITH REFLEX (05/17/2025 9:37 AM CDT) TSH 0.922 0.300 - 5.000 mIU/L 05/17/2025 10:33 AM CDT [facility] Blood Venipuncture / Unknown 05/17/2025 9:37 AM CDT 05/17/2025 9:48 AM CDT Eugenie Ny APRN, CUT IN STATION OPERATOR CHEMISTRY ORDERABLES Fin al Result Performing Organization Address [facility] Co de Phone Number [facility] [address] [place] [address] * (ABNORMAL) CBC WITH AUTO DIFFERENTIAL (05/17/2025 9:37 AM CDT) WBC 12.64(H) 4.00 - 12.00 10(3)/mcL 05/17/2025 9:52 AM CDT [facility] RBC 4.84 3.80 - 5.30 10(6)/mcL 05/17/2025 9:52 AM CDT [facility] HEMOGLOBIN (HGB) 14.1 12.0 - 15.8 g/dL 05/17/2025 9:52 AM CDT [facility] HEMATOCRIT (HCT) 43.2 36.0 - 47.0 % 05/17/2025 9:52 AM CDT [facility] MCV 89.3 82.0 - 96.0 fL 05/17/2025 9:52 AM CDT [facility] MCH 29.1 26.0 - 34.0 pg 05/17/2025 9:52 AM CDT [facility] MCHC 32.6 31.0 - 36.0 g/dL 05/17/2025 9:52 AM CDT [facility] PLATELET COUNT 379 140 - 440 10(3)/mcL 05/17/2025 9:52 AM CDT [facility] RDW 15.9(H) 11.8 - 15.5 % 05/17/2025 9:52 AM CDT [facility] MPV 9.8 9.7 - 12.4 fL 05/17/2025 9:52 AM CDT [facility] NEUTROPHILS 70.4 47.0 - 73.0 % 05/17/2025 9:52 AM CDT [facility] LYMPHOCYTES 23.2 18.0 - 42.0 % 05/17/2025 9:52 AM CDT [facility] MONOCYTES 4.5 4.0 - 12.0 % 05/17/2025 9:52 AM CDT [facility] EOSINOPHILS 1.2 0.0 - 5.0 % 05/17/2025 9:52 AM CDT [facility] BASOPHILS 0.2 0.0 - 1.0 % 05/17/2025 9:52 AM CDT [facility] IMMATURE GRANULOCYTE 0.5(H) 0.0 - 0.4 % 05/17/2025 9:52 AM CDT [facility] Comment:Immature Granulocyte s includes Metamyelocytes, Myelocytes, and Promyelocytes. ABSOLUTE NEUTROPHILS 8.90(H) 1.60 - 7.70 10(3)/mcL 05/17/2025 9:52 AM CDT [facility] ABSOLUTE LYMPHOCYTES 2.93 1.30 - 3.20 10(3)/mcL 05/17/2025 9:52 AM CDT [facility] ABSOLUTE MONOCYTES 0.57 0.20 - 1.00 10(3)/mcL 05/17/2025 9:52 AM CDT [facility] ABSOLUTE EOSINOPHIL 0.15 0.00 - 0.40 10(3)/[facility] 05/17/2025 9:52 AM CDT [facility] ABSOLUTE BASOPHILS 0.03 0.00 - 0.10 10(3)/[facility] 05/17/2025 9:52 AM CDT [facility] ABSOLUTE IMMATURE GRANULOCYTE 0.06(H) 0.00 - 0.03 10 (3) mcL. 05/17/2025 9:52 AM CDT [facility] NRBC PER 100 WBC 0 05/17/20 9:52 AM CDT [facility] Blood Venipuncture / Unknown 05/17/2025 9:37 AM CDT 05/17/2025 9:49 AM CDT us Eugenie Ny APRN, CUT IN STATION OPERATOR HEMATOLOGY ORDERABLES Fi nal Result Performing Organization Address City/[facility]/ZIP Co de Phone Number [facility] [address] [place] [address] * VITAMIN B12 (05/17/2025 9:37 AM CDT) VITAMIN B12 363 213 - 816 pg/mL 05/17/2025 10:43 AM CDT [facility] Blood Venipuncture / Unknown 05/17/2025 9:37 AM CDT 05/17/2025 9:48 AM CDT us Eugenie Ny APRN, CUT IN STATION OPERATOR CHEMISTRY ORDERABLES Fin al Result [facility] [address] [place] [address] * FOLIC ACID (FOLATE) (05/17/2025 9:37 AM CDT) Pathologist [facility] FOLATE 10.6 7.0 - 31.4 ng/mL 05/17/2025 10:43 AM CDT [facility] IS THE PATIENT REQUIRED TO BE FASTING? No 05/17/2025 10:43 AM CDT [facility] Blood Venipuncture / Unknown 05/17/2025 9:37 AM CDT 05/17/2025 9:48 AM CDT us Eugenie Ny APRN, CUT IN STATION OPERATOR CHEMISTRY ORDERABLES Fin al Result [facility] [address] [place] [address] * (ABNORMAL) CMP (COMPREHENSIVE METABOLIC PANEL) (05/17/2025 9:37 AM CDT) [facility] SODIUM 139 136 - 145 mmol/L 05/17/2025 10:10 AM CDT [facility] POTASSIUM 3.9 3.5 - 5.1 mmol/L 05/17/2025 10:10 AM CDT [facility] CHLORIDE 104 98 - 107 mmol/L 05/17/2025 10:10 AM CDT [facility] CO2, VENOUS 26 22 - 30 mmol/L 05/17/2025 10:10 AM CDT [facility] ANION GAP 12.9 <18.0 mmol/L 05/17/2025 10:10 AM CDT [facility] GLUCOSE 94 70 - 99 mg/dL 05/17/2025 10:10 AM CDT [facility] BUN 7 5 - 18 mg/dL 05/17/2025 10:10 AM CDT [facility] CREATININE, BLOOD 0.56(L) 0.60 - 1.00 mg/dL 05/17/2025 10:10 AM [facility] BUN/CREATININE RATIO 13 12 - 20 ratio 05/17/2025 10:10 AM [facility] TOTAL PROTEIN 7.6 6.0 - 8.0 g/dL 05/17/2025 10:10 AM [facility] ALBUMIN 4.5 3.5 - 5.0 g/dL 05/17/2025 10:10 AM [facility] A/G RATIO 1.5 1.0 - 2.2 05/17/2025 10:10 AM [facility] CALCIUM 9.1 8.7 - 10.5 mg/dL 05/17/2025 10:10 AM [facility] T BILI 0.3 0.2 - 1.2 mg/dL 05/17/2025 10:10 AM [facility] SGOT (AST) 20 <43 U/L 05/17/2025 10:10 AM [facility] SGPT (ALT) 24 <56 U/L 05/17/2025 10:10 AM [facility] ALKALINE PHOSPHATASE 70 40 - 150 U/L 05/17/2025 10:10 AM [facility] IS THE PATIENT REQUIRED TO BE FASTING? No 05/17/2025 10:10 AM [facility] GFR, ESTIMATED >60 >=60 05/17/2025 10:10 AM [facility] Comment: Creatinine Clearance is the preferred criteria for selecting drug dose adjustments in renally impaired patients. The GFR is provided as additional pertinent clinical information. GFR is reported in mL/min/1.73 sq m. Calculation based on the Chronic Kidney Disease Epidemiology Collaboration (CKD- EPI) equation refit without adjustment for race. GFR, EST. >60 >=60 025 10:10 AM [facility] GFR, EST. NONAFRICAN >60 >=60 05/17/2025 10:10 AM [facility] Blood Venipuncture / Unknown 05/17/2025 9:37 AM CDT 05/17/2025 9:48 AM CDT us Eugenie Ny APRN, CUT IN STATION OPERATOR CHEMISTRY ORDERABLES Fin al Result [facility] [address] [place] [address] * HEPATITIS C ANTIBODY (06/24/2023 3:12 PM CDT) hepatitis C antibody 0.11 <1 S/CO [facility]CH [id number] B 06/24/2023 11:07 PM CDT [facility] Comment: Signal/Cutoff ratio < 0.79 is Nondetected Signal/Cutoff ratio 0.80-0.99 is Grayzone Signal/Cutoff ratio > 0.99 is Detected Supplemental assays are recommended if signal/cutoff ratio is >/=1.00. Signal/cutoff ratio result >/= 5.00 is 97% predictive of positivity for recombinant immunoblot assay (RIBA) and will be reported to the [place] Department of Public [facility] as required. Blood Venipuncture / Unknown 06/24/2023 3:12 PM CDT 06/24/2023 4:48 PM CDT us Thierry Zuñiga APRN, CUT IN STATION OPERATOR CHEMISTRY ORDERA BLES Final Result Performing Organization Address City/[facility] Co de Phone Number [facility] [address] [place] [address], from Last 3 Months or Most Recently Relevant to Health Maintenance Insurance [facility] Advance Directives * Full Code (Latest Code Status on File) Date Activated Date Inactivated Comments 12/30/2012 4:06 PM 11/03/2017 8:20 AM Care Teams Washing Machine Mechanic Relationship Specialty Start Date End Date John Painter MD [address] [facility] [address] [place] [address] PCP - General Family Medicine 09/13/20 Griffin Steve MD [facility]2 [facility] [address] [place] [address] Consulting Physician General Surgery 03/04/24
--- OUTSIDE RECORDS SUMMARY | 2025-06-08 13:40 | XMS_ITS | Clinical Summary ---
Author Organization [facility] Address [address] [place] [address] Care Team Providers Care Railroad Dining Car Steward/Stewardess Name Role Phone John Painter MD Primary Care Provider [phone] Allergies No known active allergies Medications No [...] Plan of Treatment Not on file Insurance [facility] Care Teams Railroad Dining Car Steward/Stewardess Relationship Specialty Start Date End Date John Painter MD [address] [address] PCP - General 07/30/21
--- OUTSIDE RECORDS SUMMARY | 2025-06-08 13:40 | XMS_ITS | Encounter Summary ---
Author Organization [facility] Address [address] [place] [address] Phone Care Team Providers Care Patient Care Name Role Phone John Painter MD Primary Care Provider [phone] Griffin Steve MD Unavailable [phone]- [phone] Encounter Details Date Type Department Care Team (Late st Contact Info) Description 05/19/2025 Results Follow-Up [facility] - Family Medicine [facility] [address] [place] [address] Jaymie, Gertrude N, UNDERGROUND PRODUCTION FOREPERSON, ELECTROMAGNET CRANE OPERATOR 2 [facility], [address] [place] [address] URINALYSIS REFLEX IF INDICATED BY ABNORMAL RESULTS Social History Tobacco Use Types Packs/Day Years Used Date Smoking Tobacco: Every Day Cigarettes 0.3 12 Smokeless Tobacco: Never Alcohol Use Standard Drinks/Week Comments Yes 0 (1 standard drink = 0.6 oz pur e alcohol) rarely [facility] Utilities Answer Date Recorded In the [...] often do you attend chur ch or yazidi services? Never 12/12/2024 Do you belong to any clubs o r organizations such as congregational groups, unions, fraternal or athletic groups, or [...] Total Score - Questions 1-9 0 10/27 [facility] - Occupational [...] place to sleep or slept in a retirement (including now)? Patient declined 02/16/2024 Housing Stability [...] any time in the past 12 m [facility], were you homeless or living in a retirement (including now)? No 12/12/2024 Education Answer Date Recorded What is the highest level of school you have completed or the highest degree you have received? Bachelor's degree (e.g., BA, AB, BS) 05/19/2023 Sexually Active Control Partners Comments Yes Male Condom Male Comments No Sex and Gender Information Value Date Recorded Sex Assigned at Not on file Legal Sex Female 3:17 AM CONSTRUCTION ANALYST Gender Identity Not on file Sexual Orientation Not on file documented as of this encounter Progress Notes * Gertrude Coon APRN, CNP - 05/19/2025 4:44 PM CDT UA negative documented in this encounter Plan of Treatment Upcoming Encounters Date Type Department Care Team (Late st Contact Info) Description 07/31/2025 1:00 PM CDT Office Visit [facility] - Family [facility] [address] [place] [address] John Painter MD [address] [facility] [address] [place] [address] documented as of this encounter Visit Diagnoses Not on filedocumented in this encounter Additional Health Concerns Assessment Noted Time PHQ-9 Depression Total Score: 0 11/15/19 25 3:22 PM CONSTRUCTION ANALYST documented as of this encounter Care Teams Patient Care Relationship Specialty Start Date End Date John Painter MD #[address] [facility] [address] [place] [address] PCP - General Family Medicine 09/13/20 Griffin Steve MD [address] [facility] [address] [place] [address] Consulting Physician General Surgery 03/04/24 documented as of this encounter
--- OUTSIDE RECORDS SUMMARY | 2025-06-08 13:40 | XMS_ITS | Encounter Summary ---
Author Organization [facility] Address [address] [place] [address] Phone Care Team Providers Care Insurance Operations Rep Name Role Phone John Painter MD Primary Care Provider [phone] [phone] Griffin Steve MD Unavailable [phone]- [phone] Reason for Visit * Reason Comments Medication Refill Encounter Details Date Type Department Care Team (Late Contact Info) Description 02/28/2022 Refill [facility] [address] [place] [address] John Painter MD #[address] [address] Medication Refill Social History Tobacco Use Types [...] on file Legal Sex Female 3:17 AM CAR RENTAL CLERK Gender Identity Not on file Sexual Orientation Not on file documented as of this encounter Plan of Treatment Upcoming Encounters Date Type Department Care Team (Late st Contact Info) Description 07/31/2025 1:00 PM CDT Office Visit [facility] [address] [place] [address] John Painter MD [address] [facility] [address] [place] [address] documented as of this encounter Visit Diagnoses Not on filedocumented in this encounter Additional Health Concerns Assessment Noted Time PHQ-9 Depression Total Score: 0 07/10/20 17 1:18 PM CDT documented as of this encounter Care Teams Insurance Operations Rep Relationship Specialty Start Date End Date John Painter MD [address] [facility] [address] [place] [address] PCP - General Family Medicine 09/13/20 Griffin Steve MD [address] [facility] [address] [place] [address] Consulting Physician General Surgery 03/04/24 documented as of this encounter
--- OUTSIDE RECORDS SUMMARY | 2025-06-08 13:40 | XMS_ITS | Encounter Summary ---
Author Organization [facility] Address [address] [place] [address] Phone Care Team Providers Care Laundry Tub Maker Name Role Phone John Painter MD Primary Care Provider [phone] [phone] Griffin Steve MD Unavailable [phone]- [phone] Reason for Visit * Reason Comments Medication Refill Encounter Details Date Type Department Care Team (Late st Contact Info) Description 12/10/2024 Refill [facility] Medical Group - Family Medicine [facility] [address] [place] [address] Eugenie Ny, CHIEF DRAFTER, HEEL SORTER [address] [place] [address] Medication Refill Social History Tobacco Use Types Packs/Day Years Used Date Smoking Tobacco: Every Day Cigarettes 0.3 12 Smokeless Tobacco: Never Alcohol Use Standard Drinks/Week Comments Yes 0 (1 standard drink = 0.6 oz pur e alcohol) rarely [facility] Utilities Answer Date Recorded In the [...] often do you attend chur ch or scientologist services? Never 12/12/2024 Do you belong to any clubs o r organizations such as zoroastrianism groups, unions, fraternal or athletic groups, or [...] Total Score - Questions 1-9 0 10/27 [facility] - Occupational [...] No 12/12/2024 Housing Stability Vital Sign Answer Prefecto e Recorded In the last 12 months, [...] place to sleep or slept in a intermediate (including now)? Patient declined 02/16/2024 Housing Stability [...] any time in the past 12 m [facility], were you homeless or living in a intermediate (including now)? No 12/12/2024 Education Answer Date Recorded What is the highest level of school you have completed or the highest degree you have received? Bachelor's degree (e.g., BA, AB, BS) 05/19/2023 Sexually Active Control Partners Comments Yes Male Condom Male Comments No Sex and Gender Information Value Date Recorded Sex Assigned at Not on file Legal Sex Female 3:17 AM SET DECORATOR Gender Identity Not on file Sexual Orientation Not on file documented as of this encounter Functional Status * AUDIT-C Score Answer Date of Assessment Author 1 12/12/2024 10:15 AM SET DECORATOR Jair Singh Ios * Q1: How often do you have a drink containing alcohol? Answer Date of Assessment Author Monthly or less 12/12/2024 10:15 AM SET DECORATOR Jair Al ton Ios * Q2: How many drinks containing alcohol do you have on a typical day when you are drinking? Answer Date of Assessment Author 1 or 2 12/12/2024 10:15 AM SET DECORATOR Jair Johnson ton Ios * Q3: How often do you have six or more drinks on one occasion? Answer Date of Assessment Author Never 12/12/2024 10:15 AM SET DECORATOR [facility] Alex Jacksons documented as of this encounter [...] 11/15/24 Office Visit Eugenie Ny APRN, CLAUDIA [facility] [place] 09/26/24 Telemedicine John Painter MD [facility] [place] 09/19/24 Appointment John Painter MD [facility] 05/04/24 Telemedicine John Painter MD [facility] 03/29/24 Office Visit Thierry Zuñiga APRN, CNP [facility] 02/16/24 Office Visit Thierry Zuñiga APRN, CLAUDIA [facility] Showing recent visits within past 365 days and meeting all other requirements Today's Visits Date Type Provider Dept 12/12/24 Office Visit Eugenie Ny APRN, CLAUDIA [facility] Showing today's visits and meeting all other requirements Future Appointments Date Type Provider Dept 12/28/24 Appointment Eugenie Ny APRN, CLAUDIA [facility] [place] Showing future appointments within next 90 days and meeting all other requirements DECORATOR documented in this encounter Plan of Treatment Upcoming Encounters Date Type Department Care Team (Late st Contact Info) Description 07/31/2025 1:00 PM CDT Office Visit [facility] Medical Group - Family Medicine - [place] [address] [place] [address] John Painter MD #[address] [facility] [address] [place] [address] documented as of this encounter Visit Diagnoses Not on filedocumented in this encounter Additional Health Concerns Assessment Noted Time PHQ-9 Depression Total Score: 0 11/15/19 25 3:22 PM SET DECORATOR documented as of this encounter Care Teams Laundry Tub Maker Relationship Specialty Start Date End Date John Painter MD #[address] [facility] [address] [place] [address] PCP - General Family Medicine 09/13/20 Griffin Steve MD #[address] [facility] [address] [place] [address] Consulting Physician General Surgery 03/04/24 documented as of this encounter
--- OUTSIDE RECORDS SUMMARY | 2025-06-08 13:40 | XMS_ITS | Clinical Summary ---
Author Organization [facility] Address [address] [place] [address] Care Team Providers Care Water Pollution Control Technician Name Role Phone John Painter MD Primary Care Provider [phone] Source Comments [facility],non-owned Affiliates and Associated Physician Practices is amultiple site organization consisting of ambulatory clinics and hospital sitesin [place], [place], [place] and [place]. This disclosure is being madepursuant to the Care Everywhere program and may not contain all information available regarding this patient. Last updated 18.[facility] Allergies Active Allergy Reactions Criticality Noted Date [...] 05/03/2013 Immunizations Immunization Administration Dates Next Due Ambow Education primary monoval ent 12+ yr 0.3mL Purple [...] Date Smoking Tobacco: Every Day Cigarettes 0.3 14.7 Started: 10/03/2010 Smokeless Tobacco: Never Alcohol Use Standard Drinks/Week Comments Yes 0 (1 standard drink = 0.6 oz pur e alcohol) drinks occassional PHQ-2 Answer Date Recorded PHQ2 TOTAL SCORE 0 12/11/2021 Comments No Sex and Gender Information Value Date Recorded Sex Assigned at Female 09/27/2021 6:48 AM PEN TENDER Legal Sex Female 12:18 PM PEN TENDER Gender Identity Not on file Sexual Orientation Not on file Last Filed Vital Signs Vital Sign Reading Time Taken Comments Blood Pressure 178/127 01/14/2024 2:08 PM CDT Pulse 137 01/14/2024 2:08 PM CDT Temperature 37.6 C (99.7 F) 01/14/2024 2:08 PM CDT Respiratory Rate 17 10/03/2021 10:48 AM PEN TENDER Oxygen Saturation 99% 01/14/2024 2:08 PM CDT [...] drink Eat small meals and snacks Insurance [facility] * Guarantor: GIULIANA RANDALL Account Type Relation to Patient Date of Phone Billing Address Personal/Family [address] [place] [address] ANTHEM ANTHEM ANTHEM ANTHEM ANTHEM ANTHEM ANTHEM ANTHEM ANTHEM ANTHEM ANTHEM ANTHEM ANTHEM ANTHEM ANTHEM ANTHEM ANTHEM ANTHEM ANTHEM ANTHEM ANTHEM ANTHEM ANTHEM ANTHEM ANTHEM ANTHEM ANTHEM ANTHEM ANTHEM ANTHEM ANTHEM ANTHEM ANTHEM ANTHEM Care Teams Water Pollution Control Technician Relationship Specialty Start Date End Date John Painter MD PCP - General 11/27/21
--- OUTSIDE RECORDS SUMMARY | 2025-06-08 13:40 | XMS_ITS | Clinical Summary ---
Author Organization [facility] Address [address] [place] [address] Care Team Providers Care Piped Buttonhole Machine Operator Name Role Phone John Painter MD MPH Primary Care Provider [phone] Social History Tobacco Use Types Packs/Day Years [...] patient's age to complete this topic Insurance [facility] [place] Care Teams Piped Buttonhole Machine Operator Relationship Specialty Start Date End Date John Painter MD MPH [address] [place] [address] PCP - General Family Medicine 07/20/24
--- OUTSIDE RECORDS SUMMARY | 2025-06-08 13:40 | XMS_ITS | Encounter Summary ---
Author Organization [facility] Address [address] [place] [address] Phone Care Team Providers Care Limnology Teacher Name Role Phone John Painter MD Primary Care Provider [phone] [phone] Griffin Steve MD Unavailable [phone]- [phone] Reason for Visit * Reason Comments Medication Refill Encounter Details Date Type Department Care Team (Late st Contact Info) Description 12/09/2024 Refill [facility] Medical Group - Family Medicine [facility] [address] [place] [address] Eugenie Ny, GENERAL TECHNICIAN, AUTO BODY ESTIMATOR [address] [place] [address] Medication Refill Social History Tobacco Use Types Packs/Day Years Used Date Smoking Tobacco: Every Day Cigarettes 0.3 12 Smokeless Tobacco: Never Alcohol Use Standard Drinks/Week Comments Yes 0 (1 standard drink = 0.6 oz pur e alcohol) rarely [facility] Utilities Answer Date Recorded In the [...] place to sleep or slept in a fpc (including now)? Patient declined 02/16/2024 Housing Stability [...] any time in the past 12 m [facility], were you homeless or living in a fpc (including now)? No 12/12/2024 Education Answer Date Recorded What is the highest level of school you have completed or the highest degree you have received? Bachelor's degree (e.g., BA, AB, BS) 05/19/2023 Sexually Active Control Partners Comments Yes Male Condom Male Comments No Sex and Gender Information Value Date Recorded Sex Assigned at Not on file Legal Sex Female 3:17 AM RADIO ENGINEERING TEACHER Gender Identity Not on file Sexual Orientation Not on file documented as of this encounter Functional Status * AUDIT-C Score Answer Date of Assessment Author 1 12/12/2024 10:15 AM RADIO ENGINEERING TEACHER Jair Singh Ios * Q1: How often do you have a drink containing alcohol? Answer Date of Assessment Author Monthly or less 12/12/2024 10:15 AM RADIO ENGINEERING TEACHER Jair Al ton Ios * Q2: How many drinks containing alcohol do you have on a typical day when you are drinking? Answer Date of Assessment Author 1 or 2 12/12/2024 10:15 AM RADIO ENGINEERING TEACHER Jair Johnson ton Ios * Q3: How often do you have six or more drinks on one occasion? Answer Date of Assessment Author Bjorn 12/12/2024 10:15 AM RADIO ENGINEERING TEACHER [facility] Alex Childs documented as of this encounter [...] 02/16/24 Office Visit Thierry Zuñiga APRN, CLAUD[facility] [place] Showing recent visits within past 365 days and meeting all other requirements Today's Visits Date Type Provider Dept 12/12/24 Appointment Eugenie Ny APRN, CLAUDIA [facility] Showing today's visits and meeting all other requirements Future Appointments Date Type Provider Dept 12/28/24 Appointment Eugenie Ny APRN, CLAUDIA [facility] Showing future appointments within next 90 days and meeting all other requirements O ENGINEERING TEACHER documented in this encounter Plan of Treatment Upcoming Encounters Date Type Department Care Team (Late st Contact Info) Description 07/31/2025 1:00 PM CDT Office Visit [facility] Medical Group - Family Medicine - [place] [address] [place] [id number] John Painter MD [address] [facility] [address] [place] [address] documented as of this encounter Visit Diagnoses Diagnosis Anxiety Anxiety state, unspecified documented in this encounter Additional Health Concerns Assessment Noted Time PHQ-9 Depression Total Score: 0 11/15/19 25 3:22 PM RADIO ENGINEERING TEACHER documented as of this encounter Care Teams Limnology Teacher Relationship Specialty Start Date End Date John Painter MD [address] [facility] [address] [place] [address] PCP - General Family Medicine 09/13/20 Griffin Steve MD [address] [facility] [address] [place] [address] Consulting Physician General Surgery 03/04/24 documented as of this encounter
--- OUTSIDE RECORDS SUMMARY | 2025-06-08 13:40 | XMS_ITS | Encounter Summary ---
Author Organization [facility] Address [address] [place] [address] Phone Care Team Providers Care Lifter Name Role Phone John Painter MD Primary Care Provider [phone] [phone] Griffin Steve MD Unavailable [phone]- [phone] Reason for Visit * Reason Comments Medication Refill Encounter Details Date Type Department Care Team (Late st Contact Info) Description 12/01/2021 Refill [facility] [place] [address] [place] [address] John Painter MD #[address] [address] Medication Refill Social History Tobacco Use Types [...] on file Legal Sex Female 3:17 AM PIE CHEF Gender Identity Not on file Sexual Orientation Not on file documented as of this encounter Miscellaneous Notes * Telephone Encounter - Giana Membreno RN - 12/02/2021 9:52 AM CST Medication failed the protocol, provider to review and approve the medication order if appropriate. Requested Prescriptions Pending Prescriptions Disp Refills ergocalciferol (VITAMIN D) 47440 UNIT Capsule [Pharmacy Med Name: VITAMIN D2 [...] 90 days and meeting all other requirements CHEF documented in this encounter Plan of Treatment Upcoming Encounters Date Type Department Care Team (Late st Contact Info) Description 07/31/2025 1:00 PM CDT Office Visit [facility] Medical Group - Family Medicine - [place] [address] [place] [address] John Painter MD #[address] [address] documented as of this encounter Visit Diagnoses Not on filedocumented in this encounter Additional Health Concerns Assessment Noted Time PHQ-9 Depression Total Score: 0 07/10/20 17 1:18 PM CDT documented as of this encounter Care Teams Lifter Relationship Specialty Start Date End Date John Painter MD #[address] [address] PCP - General Family Medicine 09/13/20 Griffin Steve MD #[address] [address] Consulting Physician General Surgery 03/04/24 documented as of this encounter
== END 2025-06-08 13:37 | disposition home or self-care (01) ==
PROVIDERS: PCP Family Medicine; Visit Provider Otolaryngology Otolaryngology/Facial Plastic Surgery
DX: J32.9 Chronic sinusitis, unspecified (principal); J34.1 Cyst and mucocele of nose and nasal sinus
CPT/HCPCS: 70486

== ENCOUNTER 2025-08-03 12:54 | Outpatient (CLI) | payer BC, SELFPAY ==
--- NOTE | 2025-08-03 13:05 | ECG_ITS ---
Test Date: 2025-08-03 13:15:19 Measurements Intervals [place] Rate: 84 P: 43 UT: 126 QRS: 29 QRSD: 93 T: 34 QT: 341 QTc: 404 Interpretive Statements SINUS RHYTHM BASELINE ARTIFACT- III, AVF, V1-V5 NORMAL ECG No previous ECG available for comparison Electronically Signed On 08-03-2025 14:09:08 CDT by Richard Khan D.O.
[2025-08-03 13:43] LABS: Anion Gap 8 mmol/L (4-12); Blood Urea Nitrogen 8 mg/dL (7-17); Calcium 9.3 mg/dL (8.4-10.2); Carbon Dioxide 28 mmol/L (22-30); Chloride 102 mmol/L (98-107); Estimated Glomerular Filt Rate > 60; Glucose 83 mg/dL (65-110); Potassium 3.5 mmol/L (3.4-5.0); Sodium 138 mmol/L (137-145)
== END 2025-08-03 12:55 | disposition home or self-care (01) ==
LOC: ANHSURGERY 12:59
PROVIDERS: Anesthesiology; PCP Family Medicine; Visit Provider Otolaryngology Otolaryngology/Facial Plastic Surgery
DX: I10 Essential (primary) hypertension (principal); Z79.899 Other long term (current) drug therapy; Z01.818 Encounter for other preprocedural examination
CPT/HCPCS: 36415; 80048; 93005

== ENCOUNTER 2025-08-11 00:10 | Day surgery (SDC) | payer BC, SELFPAY ==
[2025-08-02 14:50] VITALS: BMI 35.4
--- NOTE | 2025-08-02 14:52 | PC.NURSE ---
[facility] has started construction of its new state of the art ER which will open Spring 2026. With this, we anticipate parking may be a challenge for some our surgical patients and families. Parking spaces are limited but are available for all Surgical, obstetrics, and ER patients sharing this lot. If you arrive and find you are having a hard time finding a parking space, please note that we understand the challenges, please drive around the hospital and park near Hospital Entrance 1. When you enter this entrance, you can ask a volunteer to direct or take you back to the surgical waiting area to check in. We appreciate everyone?s understanding of these expected challenges while we build for your future. Report to the Outpatient Waiting Room, entrance under the green pavilion located off [address], at time _0830_ on date _[id number]_. Planned Procedure Time: _1030_.? Time changes happen often and if your time is changed the preop area will call you the afternoon before. - You and your visitor will be asked to self-screen and do not enter if you have any COVID symptoms. Please call surgeon if you need to reschedule. - A mask is optional within the hospital at this time. Patients may have clear liquids (water, carbonated beverages, clear teas, apple juice) until 3 hours prior to surgery with a maximum of 20 ounces. - No food from midnight until time of surgery and no smoking, or chewing tobacco (or any form of nicotine). No chewing gum, candy or mints. Take only the following medications with a SIP of water on the morning of surgery: ___Inhalers.____ DO NOT STOP ANY OF YOUR OTHER PRESCRIPTION MEDICATIONS PRIOR TO SURGERY EXCEPT THE FOLLOWING Hold all vitamins and supplements for 3 days per anesthesiologist. Medications to discontinue per physician Date to take last dose Please no make-up, nail bengali, hairspray, perfume, deodorant, or body powder the day of surgery.? No jewelry (including any body piercings) or valuables the day of surgery, leave them at home.? Please take a shower or bath the night before, or the morning of, surgery with an antibacterial soap.? Wear comfortable, loose fitting clothing.? - Jewelry must be removed prior to entering the operating room.? Rings and piercings that are not removed may be cut off. - The hospital will not accept responsibility for valuables.? - Please leave all valuables, including medications, at home the day of surgery. If you are going home after surgery, a licensed xm1 tank driver must drive you home.? - NO public transportation without another adult if you receive anesthesia. - We recommend that an adult stay with you for 24 hours following discharge. - We also recommend that you do not drive, make important decision, drink alcoholic beverages, or take any drugs that were not prescribed by your health care provider for at least 24 hours after your discharge time. Follow any additional instructions given to you from your surgeon. Telephone instructions given to __Giuliana__and asked if any additional questions and then verbalized understanding. Patient advised to call surgeon office or pre surgery nurse liaison [phone] if any additional questions.
[2025-08-11] VITALS (22 sets, daily range): BP systolic 149–190; BP diastolic 88–111; PULSE 80–114; RESP 12–24; TEMP 36.4–36.5; O2SAT 94–100; BMI 36.6
--- OUTSIDE RECORDS SUMMARY | 2025-08-11 00:13 | XMS_ITS | Encounter Summary ---
Author Organization [facility] Address [address] [place] [address] Phone Care Team Providers Care Channel Layer Name Role Phone John Painter MD Primary Care Provider [phone] [phone] Griffin Steve MD Unavailable [phone]- [phone] Reason for Visit * Reason Comments Medication Refill Encounter Details Date Type Department Care Team (Late st Contact Info) Description 12/10/2024 Refill [facility] Medical Group - Family Medicine [facility] [address] [place] [address] Eugenie Ny, SUPERVISOR PRODUCTION, FLIGHT COMMUNICATIONS SPECIALIST #[address] [place] [address] Medication Refill Social History Tobacco Use Types Packs/Day Years Used Date Smoking Tobacco: Every Day Cigarettes 0.3 12 Smokeless Tobacco: Never Alcohol Use Standard Drinks/Week Comments Yes 0 (1 standard drink = 0.6 oz pur e alcohol) rarely [facility] Utilities Answer Date Recorded In the [...] often do you attend chur ch or buddhism services? Never 12/12/2024 Do you belong to any clubs o r organizations such as cheondoism groups, unions, fraternal or athletic groups, or [...] Total Score - Questions 1-9 0 10/27 [facility] - Occupational [...] any time in the past 12 m [facility], were you homeless or living in a [...] on file Legal Sex Female 3:17 AM TICKET DISPATCHER Gender Identity Not on file Sexual Orientation Not on file documented as of this encounter Functional Status * AUDIT-C Score Answer Date of Assessment Author 1 12/12/2024 10:15 AM TICKET DISPATCHER Jair Singh Ios * Q1: How often do you have a drink containing alcohol? Answer Date of Assessment Author Monthly or less 12/12/2024 10:15 AM TICKET DISPATCHER Jair Al ton Ios * Q2: How many drinks containing alcohol do you have on a typical day when you are drinking? Answer Date of Assessment Author 1 or 2 12/12/2024 10:15 AM TICKET DISPATCHER Jair Johnson ton Ios * Q3: How often do you have six or more drinks on one occasion? Answer Date of Assessment Author Never 12/12/2024 10:15 AM TICKET DISPATCHER [facility] Alex Jacksons documented as of this encounter [...] 11/15/24 Office Visit Eugenie Ny APRN, CLAUDIA [facility] 09/26/24 Telemedicine John Painter MD [facility] 09/19/24 Appointment John Painter MD [facility] 05/04/24 Telemedicine John Painter MD [facility] 03/29/24 Office Visit Thierry Zuñiga APRN, CLAUDIA [facility] 02/16/24 Office Visit Thierry Zuñiga APRN, FLIGHT COMMUNICATIONS SPECIALIST [facility] Showing recent visits within past 365 days and meeting all other requirements Today's Visits Date Type Provider Dept 12/12/24 Office Visit Eugenie Ny APRN, FLIGHT COMMUNICATIONS SPECIALIST [facility] Showing today's visits and meeting all other requirements Future Appointments Date Type Provider Dept 12/28/24 Appointment Eugenie Ny APRN, FLIGHT COMMUNICATIONS SPECIALIST [facility] Showing future appointments within next 90 days and meeting all other requirements ET DISPATCHER documented in this encounter Plan of Treatment Not on file documented as of this encounter Visit Diagnoses Not on filedocumented in this encounter Additional Health Concerns Assessment Noted Time PHQ-9 Depression Total Score: 0 11/15/19 3:22 PM TICKET DISPATCHER documented as of this encounter Care Teams Channel Layer Relationship Specialty Start Date End Date John Painter MD [address] [place] [facility] [address] [place] [address] PCP - General Family Medicine 09/13/20 Griffin Steve MD [address] [place] [facility] [address] [place] [address] Consulting Physician General Surgery 03/04/24 documented as of this encounter
--- OUTSIDE RECORDS SUMMARY | 2025-08-11 00:14 | XMS_ITS | Encounter Summary ---
Author Organization [facility] Address [address] [place] [address] Phone Care Team Providers Care Dust Box Tender Name Role Phone John Painter MD Primary Care Provider [phone] Griffin Steve MD Unavailable [phone]- [phone] Reason for Visit * Reason Comments Medication Refill Encounter Details Date Type Department Care Team (Late st Contact Info) Description 12/09/2024 Refill [facility] - Family Medicine [facility] [address] [place] [address] Eugenie Ny, TURF SALES PERSON, PRICE CHECKER [address] [place] [address] Medication Refill Social History Tobacco Use Types Packs/Day Years Used Date Smoking Tobacco: Every Day Cigarettes 0.3 12 Smokeless Tobacco: Never Alcohol Use Standard Drinks/Week Comments Yes 0 (1 standard drink = 0.6 oz pur e alcohol) rarely [facility] Utilities Answer Date Recorded In the past [...] often do you attend chur ch or gnosticism services? Never 12/12/2024 Do you belong to any clubs o r organizations such as sikhism groups, unions, fraternal or athletic groups, or [...] Total Score - Questions 1-9 0 10/27 [facility] - Occupational [...] place to sleep or slept in a residential (including now)? Patient declined 02/16/2024 Housing Stability [...] any time in the past 12 m [facility], were you homeless or living in a residential (including now)? No 12/12/2024 Education Answer Date Recorded What is the highest level of school you have completed or the highest degree you have received? Bachelor's degree (e.g., BA, AB, BS) 05/19/2023 Sexually Active Control Partners Comments Yes Male Condom Male Comments No Sex and Gender Information Value Date Recorded Sex Assigned at Not on file Legal Sex Female 3:17 AM DATA ANALYSIS MANAGER Gender Identity Not on file Sexual Orientation Not on file documented as of this encounter Functional Status * AUDIT-C Score Answer Date of Assessment Author 1 12/12/2024 10:15 AM DATA ANALYSIS MANAGER Jair Singh Ios * Q1: How often do you have a drink containing alcohol? Answer Date of Assessment Author Monthly or less 12/12/2024 10:15 AM DATA ANALYSIS MANAGER Jair Al ton Ios * Q2: How many drinks containing alcohol do you have on a typical day when you are drinking? Answer Date of Assessment Author 1 or 2 12/12/2024 10:15 AM DATA ANALYSIS MANAGER Jair Johnson ton Ios * Q3: How often do you have six or more drinks on one occasion? Answer Date of Assessment Author Bjorn 12/12/2024 10:15 AM DATA ANALYSIS MANAGER [facility] Alex Childs documented as of this encounter [...] 11/15/24 Office Visit Eugenie Ny APRN, CNP [facility] 09/26/24 Telemedicine John Painter MD [facility] 09/19/24 Appointment John Painter MD [facility] 05/04/24 Telemedicine John Painter MD [facility] 03/29/24 Office Visit Thierry Zuñiga APRN, CNP [facility] 02/16/24 Office Visit Thierry Zuñiga APRN, [facility]I [facility] Showing recent visits within past 365 days and meeting all other requirements Today's Visits Date Type Provider Dept 12/12/24 Appointment Eugenie Ny APRN, CLAUDIA [facility] Showing today's visits and meeting all other requirements Future Appointments Date Type Provider Dept 12/28/24 Appointment Eugenie Ny APRN, CLAUDIA [facility] Showing future appointments within next 90 days and meeting all other requirements ANALYSIS MANAGER documented in this encounter Plan of Treatment Not on file documented as of this encounter Visit Diagnoses Diagnosis Anxiety Anxiety state, unspecified documented in this encounter Additional Health Concerns Assessment Noted Time PHQ-9 Depression Total Score: 0 11/15/19 3:22 PM DATA ANALYSIS MANAGER documented as of this encounter Care Teams Dust Box Tender Relationship Specialty Start Date End Date John Painter MD [address] [facility] [address] [place], [place] [id number] PCP - General Family Medicine 09/13/20 Griffin Steve MD [address] [place] [facility] [address] [place] [id number] Consulting Physician General Surgery 03/04/24 documented as of this encounter
--- OUTSIDE RECORDS SUMMARY | 2025-08-11 00:14 | XMS_ITS | Clinical Summary ---
Author Organization [facility] Address [address] [place] [address] Care Team Providers Care Record Press Tender Name Role Phone John Painter MD Primary Care Provider [phone] Allergies No known active allergies Medications No [...] Plan of Treatment Not on file Insurance [facility] Care Teams Record Press Tender Relationship Specialty Start Date End Date John Painter MD [address] [address] PCP - General 07/30/21
--- OUTSIDE RECORDS SUMMARY | 2025-08-11 00:14 | XMS_ITS | Encounter Summary ---
Author Organization [facility] Address [address] [place] [address] Phone Care Team Providers Care Underwriting Consultant Name Role Phone John Painter MD Primary Care Provider [phone] Griffin Steve MD Unavailable [phone] Encounter Details Date Type Department Care Team (Late st Contact Info) Description 06/13/2025 Results Follow-Up [facility] Medical Group - Ear, Nose & Throat - [place] [address] [place] [address] Mary Trejo RN [place] - HEAD/NECK Social History Tobacco Use Types Packs/Day Years Used Date Smoking Tobacco: Every Day Cigarettes 0.3 12 Smokeless Tobacco: Never Alcohol Use Standard Drinks/Week Comments Yes 0 (1 standard drink = 0.6 oz pur e alcohol) rarely C Utilities Answer Date Recorded In the past 12 months has [email or web address] electric, gas, oil, or water company threatened [...] often do you attend chur ch or jain services? Never 12/12/2024 Do you belong to [...] Total Score - Questions 1-9 0 10/27 [facility] - Occupational [...] any time in the past 12 m [facility], were you homeless or living in [...] on file Legal Sex Female 3:17 AM FINANCE DIRECTOR Gender Identity Not on file Sexual Orientation Not on file documented as of this encounter Plan of Treatment Not on file documented as of this encounter Visit Diagnoses Not on filedocumented in this encounter Additional Health Concerns Assessment Noted Time PHQ-9 Depression Total Score: 0 11/15/19 25 3:22 PM FINANCE DIRECTOR documented as of this encounter Care Teams Underwriting Consultant Relationship Specialty Start Date End Date John Painter MD [address] [place] [facility] [address] [place] [address] PCP - General Family Medicine 09/13/20 Griffin Steve MD [address] [facility] [address] [place] [address] Consulting Physician General Surgery 03/04/24 documented as of this encounter
--- OUTSIDE RECORDS SUMMARY | 2025-08-11 00:14 | XMS_ITS | Encounter Summary ---
Author Organization [facility] Address [address] [place] [address] Phone Care Team Providers Care Stone Crusher Operator Name Role Phone John Painter MD Primary Care Provider [phone] Griffin Steve MD Unavailable [phone] Reason for Visit * Reason Comments Medication Refill Encounter Details Date Type Department Care Team (Late st Contact Info) Description 02/28/2022 Refill [facility] [address] [place] [address] John Painter MD [address] [address] Medication Refill Social History Tobacco Use Types [...] on file Legal Sex Female 3:17 AM FOOD CASHIER Gender Identity Not on file Sexual Orientation Not on file documented as of this encounter Plan of Treatment Not on file documented as of this encounter Visit Diagnoses Not on filedocumented in this encounter Additional Health Concerns Assessment Noted Time PHQ-9 Depression Total Score: 0 07/10/20 17 1:18 PM CDT documented as of this encounter Care Teams Stone Crusher Operator Relationship Specialty Start Date End Date John Painter MD [address]2 [facility] [address] [place] [address] PCP - General Family Medicine 09/13/20 Griffin Steve MD [address] [facility] [address] [place] [address] Consulting Physician General Surgery 03/04/24 documented as of this encounter
--- OUTSIDE RECORDS SUMMARY | 2025-08-11 00:14 | XMS_ITS | Clinical Summary ---
Author Organization [facility] Address [address] [place] [address] Phone Care Team Providers Care Foundation Assistant Name Role Phone John Painter MD Primary Care Provider [phone] [phone] Griffin Steve MD Unavailable Allergies Active Allergy Reactions Criticality Noted Date Comments Doxycycline Vomiting 05/16/2025 Lisinopril Diarrhea 07/24/2022 AFFECTED YOUR MOOD Metoprolol Itching,Other (see Comments) 05/16/2025 Constant coughing Medications albuterol 108 (90 Base) MCG/ACT Aerosol Solution take 2 Puffs by inhalation every 6 hours as needed for Wheezing or Cough. 1 g 1 4 Active fluticasone (FLONASE) 50 MCG/ACT Suspension 1 [place] by Nasal route daily. Use in each nostril as directed. 16 g 4 Active famotidine (PEPCID) 20 MG TabletIndication s:Gastroesophage al reflux disease, unspecified whether esophagitis present Take 1 Tablet by mouth 2 times daily. 90 Tablet 3 5 Active Additional Information Patient not taking.Reported on 05/17/2025 desipramine (NOPRAMIN) 10 MG Tablet TAKE 1 TABLET BY MOUTH EVERY NIGHT 30 Tablet 2 5 Active Additional Information Patient not taking.Reported on 05/17/2025 valACYclovir (VALTREX) 1 GM TabletIndication s:Herpes simplex infection Take 1 Tablet by mouth daily. 90 Tablet 3 5 Active hydroCHLOROthiaz freddie (MICROZIDE) 12.5 MG CapsuleIndicatio ns:Primary hypertension Take 1 Capsule by mouth daily. 90 Capsule 3 5 Active Breo Ellipta 200-25 MCG/ACT AEROSOL POWDER, BREATH ACTIVATED take 1 Puff by inhalation daily. 5 Active triamcinolone (KENALOG) 0.1 % CreamIndications :Rash/skin eruption Application Site: Apply to affected area twice daily for fourteen days 45 g 5 Active Additional Information Patient not taking.Reported on 05/17/2025 azelastine (ASTELIN) 0.1 % Solution 5 Active doxycycline hyclate (VIBRAMYCIN) 100 MG Capsule 5 Active ondansetron (ZOFRAN-ODT) 4 MG TABLET DISPERSIBLEIndic ations:Nausea Take 1 Tablet by mouth every 8 hours as needed for Nausea - 1st line. 10 Tablet 5 Active hydrOXYzine (ATARAX) 25 MG TabletIndication s:Anxiety TAKE 1 TABLET BY MOUTH EVERY 8 HOURS NEEDED FOR ANXIETY 30 Tablet 5 Active Active Problems Problem Noted Date Diagnosed [...] Encounters Date Type Department Care Team Description 06/13/2025 Results Follow-Up [facility] [place] [address] [place] [address] - HEAD/NECK 06/06/2025 [facility] [place] [address] Eugenie yN APRN, FLUMER Medication Refill 05/19/2025 Results Follow-Up [facility] [place] [address] [place] [address] Gertrude Coon, LYNETTE, FLUMER URINALYSIS REFLEX IF INDICATED BY ABNORMAL RESULTS 05/17/2025 9:00 AM CDT Office Visit [facility] [place] [address] [place] [address] Gertrude Coon, CUSTOMER SERVICE LEADER, FLUMER Increased frequency of urination (Primary Dx); Nausea; Burning with urination Discharge Disposition: Discharged to home or Selfcare 05/17/2025 Refill [facility] [address] [place] [address] John Painter MD Medication Refill 05/17/2025 Travel 05/16/2025 Nurse Triage [facility] [address] [place] [phone] John Painter MD Advice Only; Nasal Congestion; Urinary Frequency from Last 3 Months Immunizations Immunization Administration Dates Next Due Covid-19, Mrna, Lnp-s, Pf, 3 0 Mcg/0.3 Ml Dose (Pfizer) 06/22/2021 DTAP VACCINE 06/08/1996, 2,07/27/1991,1990,03/17/1991 HIB Vaccine [...] = 0.6 oz pur e alcohol) rarely [employer] Answer Date Recorded In the past 12 months has [employer] electric, gas, oil, or water [employer] threatened to shut off services in your [...] often do you attend chur ch or amish services? 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 Gender Identity Not on file Sexual Orientation [...] 05/17/2025 9:04 AM CDT Plan of Treatment Health Maintenance Due Date Last Done Comments DTaP/Tdap/Td Immunization (6 - Tdap) 2001 06/08/1996, 06/26/1992, 07/27/1991, Additional history exists Pneumococcal Immunization Combined (1 of 2 - PCV) 2009 Pap Smear 2011 Human Papillomavirus (HPV) Immunization (1 - 3-dose SCDM series) 2017 Cervical Cancer Screening (CCS) 2020 HPV/Cotest 2020 Influenza Immunization (#1) 2025 12/11/2021, 1 11/13/2019 SARS-COV-2 Immunization (3 - 2024- season) 2025 07/13/2021, 06/22/2021 Respiratory Syncytial Virus (RSV) Immunization (Adult) (1 [...] Procedure Name Priority Date/Time Associated Diagnosis Comments CT - HEAD/NECK 06/08/2025 12:00 AM CDT URINALYSIS REFLEX IF INDICATED BY ABNORMAL RESULTS [...] Recently Relevant to Health Maintenance Results * CT - HEAD/NECK (06/08/2025 12:00 AM CDT) 06/08/2025 us Krupa Garcia MD IMG CT ORDERABLES Final Result SCAN * URINALYSIS REFLEX IF INDICATED BY ABNORMAL RESULTS (05/17/2025 10:29 AM CDT) SPECIFIC GRAVITY 1.010 1.003 - 1.030 05/17/2025 12:37 PM CDT [facility] URINE PH 8.0 5.0 - 9.0 05/17/2025 12:37 PM CDT [facility] WBC ESTERASE Negative Negative 05/17/2025 12:37 PM CDT [facility] NITRITE Negative Negative 05/17/2025 12:37 PM CDT [facility] PROTEIN, RANDOM URINE Negative Negative 05/17/2025 12:37 PM CDT [facility] URINE GLUCOSE, QUAL Negative Negative 05/17/2025 12:37 PM CDT [facility] URINE KETONES Negative Negative 05/17/2025 12:37 PM CDT [facility] UROBILINOGEN Normal Normal mg/dL 05/17/2025 12:37 PM CDT [facility] URINE BLOOD Negative Negative makayla/ul 05/17/2025 12:37 PM CDT [facility] URINALYSIS COLOR Light Yellow 2024 12:37 PM CDT [facility] URINALYSIS CLARITY Clear 05/17/2025 12:37 PM CDT [facility] Urine URINE SPECIMEN OBTAINED BY CLEAN CATCH PROCEDURE / Unknown Non-Phlebotomy Collection / Unknown 05/17/2025 10:29 AM CDT 05/17/2025 10:29 AM CDT us Gertrude N Oehl CUSTOMER SERVICE LEADER, FLUMER URINE ORDERABLES Final Re sult [facility] [address] [place] [address] * VITAMIN D, 25 HYDROXY TOTAL (05/17/2025 9:37 AM CDT) VITAMIN D, 25 HYDROX 21.1 ng/mL 05/17/2025 10:43 AM CDT [facility] Blood Venipuncture / Unknown 05/17/2025 9:37 AM CDT 05/17/2025 9:48 AM CDT Narrative [facility] - 05/17/2025 10:43 AM CDT Published reference ranges for Vitamin D vary depending on time and place and method of testing, and on patient's age, sex, ethnicity and levels of other measured analytes such as parathormone, calcium and phosphorus. The result should be evaluated in conjunction with clinical findings and suspicions. [place] of [employer] and Endocrine Clinical Practice Guidelines: Status Vitamin D levels (ng/mL) Deficient <=20 At risk of inadequacy 21-29 Sufficient 30-100 Centers of Disease Control and Prevention Guidelines: Status Vitamin D levels (ng/mL) Deficient <13 At risk of inadequacy 13-19 Sufficient 20-50 Possibly harmful >50 References: [place], 2010 Dietary reference intakes for calcium and vitamin D. [place]: The National Academies Press. Davidson M, Jose N, Lois MÁRQUEZ, et al., Evaluation, treatment, and prevention of Vitamin D deficiency: an Endocrinology Clinical Practice Guideline. JCEM 2011 96: 7 5369-0835. Ned Welch, Sahil C, Sissy D, et al., Vitamin D Status: [place], 6621-1759, [facility] data brief, no. 59, MD Giovanni: National Center for Health Statistics. 2011. Eugenie Betzy Anant CUSTOMER SERVICE LEADER, FLUMER CHEMISTRY ORDERABLES Fin al Result Performing Organization Address City/[facility]/ZIP Co de Phone Number [facility] [address] [place] [address] * THYROID SCREEN WITH REFLEX (05/17/2025 9:37 AM CDT) TSH 0.922 0.300 - 5.000 mIU/L 05/17/2025 10:33 AM CDT [facility] Blood Venipuncture / Unknown 05/17/2025 9:37 AM CDT 05/17/2025 9:48 AM CDT Eugenie Betzy Anant CUSTOMER SERVICE LEADER, FLUMER CHEMISTRY ORDERABLES Fin al Result Performing Organization Address [facility] de Phone Number [facility] [address] [place] [address] * (ABNORMAL) CBC WITH AUTO DIFFERENTIAL (05/17/2025 9:37 AM CDT) WBC 12.64(H) 4.00 - 12.00 10(3)/mcL 05/17/2025 9:52 AM CDT [facility] RBC 4.84 3.80 - 5.30 10(6)/mcL 05/17/2025 9:52 AM CDT [facility] HEMOGLOBIN (HGB) 14.1 12.0 - 15.8 g/dL 05/17/2025 9:52 AM CDT [facility] HEMATOCRIT (HCT) 43.2 36.0 - 47.0 % 05/17/2025 9:52 AM CDT [facility] MCV 89.3 82.0 - 96.0 fL 05/17/2025 9:52 AM CDT [facility] MCH 29.1 26.0 - 34.0 pg 05/17/2025 9:52 AM CDT [facility] MCHC 32.6 31.0 - 36.0 g/dL 05/17/2025 9:52 AM CDT [facility] PLATELET COUNT 379 140 - 440 10(3)/[facility] 05/17/2025 9:52 AM CDT [facility] RDW 15.9(H) 11.8 - 15.5 % 05/17/2025 9:52 AM CDT [facility] MPV 9.8 9.7 - 12.4 fL 05/17/2025 9:52 AM CDT [facility] NEUTROPHILS 70.4 47.0 - 73.0 % 05/17/2025 9:52 AM CDT [facility] LYMPHOCYTES 23.2 18.0 - 42.0 % 05/17/2025 9:52 AM CDT [facility] MONOCYTES 4.5 4.0 - 12.0 % 05/17/2025 9:52 AM CDT [facility] EOSINOPHILS 1.2 0.0 - 5.0 % 05/17/2025 9:52 AM CDT [facility] BASOPHILS 0.2 0.0 - 1.0 % 05/17/2025 9:52 AM CDT [facility] IMMATURE GRANULOCYTE 0.5(H) 0.0 - 0.4 % 05/17/2025 9:52 AM CDT [facility] Comment:Immature Granulocyte s includes Metamyelocytes, Myelocytes, and Promyelocytes. ABSOLUTE NEUTROPHILS 8.90(H) 1.60 - 7.70 10(3)/[facility] 05/17/2025 9:52 AM CDT [facility] ABSOLUTE LYMPHOCYTES 2.93 1.30 - 3.20 10(3)/[facility] 05/17/2025 9:52 AM CDT [facility] ABSOLUTE MONOCYTES 0.57 0.20 - 1.00 10(3)/[facility] 05/17/2025 9:52 AM CDT [facility] ABSOLUTE EOSINOPHIL 0.15 0.00 - 0.40 10(3)/[facility] 05/17/2025 9:52 AM CDT [facility] ABSOLUTE BASOPHILS 0.03 0.00 - 0.10 10(3)/mcL 05/17/2025 9:52 AM CDT [facility] ABSOLUTE IMMATURE GRANULOCYTE 0.06(H) 0.00 - 0.03 10 (3) mcL. 05/17/2025 9:52 AM CDT [facility] NRBC PER 100 WBC 0 05/17/20 9:52 AM CDT [facility] Blood Venipuncture / Unknown 05/17/2025 9:37 AM CDT 05/17/2025 9:49 AM CDT us Eugenie Ny APRN, FLUMER HEMATOLOGY ORDERABLES Fi nal Result Performing Organization Address City/[facility]/ZIP Co de Phone Number [facility] [address] [place] [address] * VITAMIN B12 (05/17/2025 9:37 AM CDT) VITAMIN B12 363 213 - 816 pg/mL 05/17/2025 10:43 AM CDT [facility] Blood Venipuncture / Unknown 05/17/2025 9:37 AM CDT 05/17/2025 9:48 AM CDT us Eugenie Ny APRN, FLUMER CHEMISTRY ORDERABLES Fin al Result Performing Organization Address City/[facility]/ZIP Co de Phone Number [facility] [address] [place] [address] * FOLIC ACID (FOLATE) (05/17/2025 9:37 AM CDT) FOLATE 10.6 7.0 - 31.4 ng/mL 05/17/2025 10:43 AM CDT [facility] IS THE PATIENT REQUIRED TO BE FASTING? No 05/17/2025 10:43 AM CDT [facility] Blood Venipuncture / Unknown 05/17/2025 9:37 AM CDT 05/17/2025 9:48 AM CDT us Eugenie Ny CUSTOMER SERVICE LEADER, FLUMER CHEMISTRY ORDERABLES Fin al Result [facility] [address] [place] [address] * (ABNORMAL) CMP (COMPREHENSIVE METABOLIC PANEL) (05/17/2025 9:37 AM CDT) SODIUM 139 136 - 145 mmol/L 05/17/2025 10:10 AM CDT [facility] POTASSIUM 3.9 3.5 - 5.1 mmol/L 05/17/2025 10:10 AM CDT [facility] CHLORIDE 104 98 - 107 mmol/L 05/17/2025 10:10 AM CDT [facility] CO2, VENOUS 26 22 - 30 mmol/L 05/17/2025 10:10 AM CDT [facility] ANION GAP 12.9 <18.0 mmol/L 05/17/2025 10:10 AM CDT [facility] GLUCOSE 94 70 - 99 mg/dL 05/17/2025 10:10 AM CDT [facility] BUN 7 5 - 18 mg/dL 05/17/2025 10:10 AM CDT [facility] CREATININE, BLOOD 0.56(L) 0.60 - 1.00 mg/dL 05/17/2025 10:10 AM CDT [facility] BUN/CREATININE RATIO 13 12 - 20 ratio 05/17/2025 10:10 AM CDT [facility] TOTAL PROTEIN 7.6 6.0 - 8.0 g/dL 05/17/2025 10:10 AM CDT [facility] ALBUMIN 4.5 3.5 - 5.0 g/dL 05/17/2025 10:10 AM CDT [facility] A/G RATIO 1.5 1.0 - 2.2 05/17/2025 10:10 AM CDT [facility] CALCIUM 9.1 8.7 - 10.5 mg/dL 05/17/2025 10:10 AM CDT [facility] T BILI 0.3 0.2 - 1.2 mg/dL 05/17/2025 10:10 AM CDT [facility] SGOT (AST) 20 <43 U/L 05/17/2025 10:10 AM CDT [facility] SGPT (ALT) 24 <56 U/L 05/17/2025 10:10 AM CDT [facility] ALKALINE PHOSPHATASE 70 40 - 150 U/L 05/17/2025 10:10 AM CDT [facility] IS THE PATIENT REQUIRED TO BE FASTING? No 05/17/2025 10:10 AM CDT [facility] GFR, ESTIMATED >60 >=60 05/17/2025 10:10 AM CDT [facility] Comment: Creatinine Clearance is the preferred criteria for selecting drug dose adjustments in renally impaired patients. The GFR is provided as additional pertinent clinical information. GFR is reported in mL/min/1.73 sq m. Calculation based on the Chronic Kidney Disease Epidemiology Collaboration (CKD- EPI) equation refit without adjustment for race. GFR, EST. >60 >=60 025 10:10 AM CDT [facility] GFR, EST. NONAFRICAN >60 >=60 05/17/2025 10:10 AM CDT [facility] Blood Venipuncture / Unknown 05/17/2025 9:37 AM CDT 05/17/2025 9:48 AM CDT us Eugenie Ny CUSTOMER SERVICE LEADER, FLUMER CHEMISTRY ORDERABLES Fin al Result [facility] [address] [place] [address] * HEPATITIS C ANTIBODY (06/24/2023 3:12 PM CDT) hepatitis C antibody 0.11 <1 S/CO [facility] ARCH [id number] B 06/24/2023 11:07 PM CDT [facility] Comment: Signal/Cutoff ratio < 0.79 is Nondetected Signal/Cutoff ratio 0.80-0.99 is Grayzone Signal/Cutoff ratio > 0.99 is Detected Supplemental assays are recommended if signal/cutoff ratio is >/=1.00. Signal/cutoff ratio result >/= 5.00 is 97% predictive of positivity for recombinant immunoblot assay (RIBA) and will be reported to the [place] Department of Public Health as required. Blood Venipuncture / Unknown 06/24/2023 3:12 PM CDT 06/24/2023 4:48 PM CDT us Thierry Zuñiga APRN, FLUMER CHEMISTRY ORDERA BLES Final Result [facility] [address] [place] [address], from Last 3 Months or Most Recently Relevant to Health Maintenance Insurance [facility] Advance Directives * Full Code (Latest Code Status on File) Date Activated Date Inactivated Comments 12/30/2012 4:06 PM 11/03/2017 8:20 AM Care Teams Foundation Assistant Relationship Specialty Start Date End Date John Painter MD #2 [facility] [address] [place] [address] PCP - General Family Medicine 09/13/20 Griffin Steve MD [address]2 [facility] [address] [place] [address] Consulting Physician General Surgery 03/04/24
--- OUTSIDE RECORDS SUMMARY | 2025-08-11 00:14 | XMS_ITS | Encounter Summary ---
Author Organization [facility] Address [address] 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 Gender Identity Not on file Sexual Orientation [...] 10/06/22 Office Visit Thierry Zuñiga APRN, CLAUDIA [facility] 05/23/22 Office Visit [facility] Showing recent visits within past 365 days [...] documented as of this encounter Care Teams Inventory Associate And Driver Relationship Specialty Start Date End Date John Painter MD #2 [facility] [address] [place] [address] PCP - General Family Medicine 09/13/20 Griffin Steve MD #2 [facility] [address] [place] [address] Consulting Physician General Surgery 03/04/24 documented as of this encounter
--- OUTSIDE RECORDS SUMMARY | 2025-08-11 00:14 | XMS_ITS | Clinical Summary ---
Author Organization [facility] Address [address] [place] [address] Care Team Providers Care Patient Care Assistant Name Role Phone John Painter MD Primary Care Provider [phone] Source Comments [facility],non-owned Affiliates and Associated Physician Practices is amultiple site organization consisting of ambulatory clinics and hospital sitesin [place], [place], [place] and [place]. This disclosure is being madepursuant to the Care Everywhere program and may not contain all information available regarding this patient. Last updated 18.[facility] Allergies Active Allergy Reactions Criticality Noted Date [...] 05/03/2013 Immunizations Immunization Administration Dates Next Due [email or web address] primary monoval ent 12+ yr 0.3mL Purple [...] Date Smoking Tobacco: Every Day Cigarettes 0.3 14.9 Started: 10/03/2010 Smokeless Tobacco: Never Alcohol Use Standard Drinks/Week Comments Yes 0 (1 standard drink = 0.6 oz pur e alcohol) drinks occassional PHQ-2 Answer Date Recorded PHQ2 TOTAL SCORE 0 12/11/2021 Comments No Sex and Gender Information Value Date Recorded Sex Assigned at Female 09/27/2021 6:48 AM JAVA DEVELOPMENT TEAM LEAD Legal Sex Female 12:18 PM JAVA DEVELOPMENT TEAM LEAD Gender Identity Not on file Sexual Orientation Not on file Last Filed Vital Signs Vital Sign Reading Time Taken Comments Blood Pressure 178/127 01/14/2024 2:08 PM CDT Pulse 137 01/14/2024 2:08 PM CDT Temperature 37.6 C (99.7 F) 01/14/2024 2:08 PM CDT Respiratory Rate 17 10/03/2021 10:48 AM JAVA DEVELOPMENT TEAM LEAD Oxygen Saturation 99% 01/14/2024 2:08 PM CDT [...] VACCINE (1 - 3-dose SCDM series) 2017 DEPRESSION SCREENING 10/26/2024 07/24/2022 COVID-19 VACCINE (3 - 2024- season) 2025 07/13/2021, 06/22/2021 INFLUENZA VACCINE (#1) 2025 12/11/2021, 2019 ZOSTER [...] small meals and snacks Insurance [facility] * Guarantor: GIULIANA RANDALL Account Type Relation to Patient Date of Phone Billing Address Personal/Family [address] [place] [address] ANTHEM ANTHEM ANTHEM ANTHEM ANTHEM ANTHEM ANTHEM ANTHEM ANTHEM ANTHEM ANTHEM ANTHEM ANTHEM ANTHEM ANTHEM ANTHEM ANTHEM ANTHEM ANTHEM ANTHEM ANTHEM ANTHEM ANTHEM ANTHEM ANTHEM ANTHEM ANTHEM ANTHEM ANTHEM ANTHEM ANTHEM ANTHEM ANTHEM ANTHEM Care Teams Patient Care Assistant Relationship Specialty Start Date End Date John Painter MD PCP - General 11/27/21
--- OUTSIDE RECORDS SUMMARY | 2025-08-11 00:14 | XMS_ITS | Encounter Summary ---
Author Organization [facility] Address [address] 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
--- OUTSIDE RECORDS SUMMARY | 2025-08-11 00:14 | XMS_ITS | Clinical Summary ---
Author Organization [facility] Facility Address [address] [place] [address] Care Team Providers Care Security Systems Technician Name Role Phone John Painter MD MPH Primary Care Provider [phone] [phone] Social History Tobacco Use Types Packs/Day Years [...] patient's age to complete this topic Insurance [facility] [place] Care Teams Security Systems Technician Relationship Specialty Start Date End Date John Painter MD MPH [address] [place] [address] PCP - General Family Medicine 07/20/24
--- OUTSIDE RECORDS SUMMARY | 2025-08-11 00:14 | XMS_ITS | Encounter Summary ---
Author Organization [facility] Address [address] 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 Requested Prescriptions Pending Prescriptions Disp Refills ergocalciferol (VITAMIN D) 38682 UNIT Capsule [Pharmacy Med Name: VITAMIN D2 [...] 90 days and meeting all other requirements ICATION PROCESSOR documented in this encounter Plan of Treatment Not on file documented as of this encounter Visit Diagnoses Not on filedocumented in this encounter Additional Health Concerns Assessment Noted Time PHQ-9 Depression Total Score: 0 07/10/20 17 1:18 PM CDT documented as of this encounter Care Teams Drum Sprayer Relationship Specialty Start Date End Date John Painter MD #2 [facility] [address] [place] [address] PCP - General Family Medicine 09/13/20 Griffin Steve MD #2 [facility] [address] [place] [address] Consulting Physician General Surgery 03/04/24 documented as of this encounter
[2025-08-11] MEDS: OXYMETAZOLINE HCL 0.05% NAS 15 ML BTL (*BKC) 2 SPRAY NASAL ×3 (06:17→06:30)
[2025-08-11] MEDS: ACETAMINOPHEN 500 MG TABLET 1000 MG PO (06:17)
[2025-08-11] MEDS: LACTATED RINGERS 1,000 ML 30 ML IV CONT ×2 (06:25→10:18)
[2025-08-11 06:34] LABS: BEDSIDEPREGUCG Negative (Negative)
--- NOTE | 2025-08-11 06:45 | WPDANESEPPF ---
Anes - Initial Pre Proc Eval Procedure: Operation Date: 08/11/25 07:30 Proposed Procedures p Image Guided Right Maxillary Antrostomy with Tissue Removal, Bilateral Submucous Resection of Inferior Turbinate with Outfracture Nasopharyngeal Mass Biopsy, Bilateral Sabrina Bullosa Resection - Krupa Garcia MD s Endoscopic Septoplasty - MD garrett Bourne Right Myringotomy with Grommet Ring Insertion - Krupa Garcia MD Date/Time: 08/11/25 06:45 Surgeon: Krupa Garcia MD Pre Op Diagnosis: Eust Tube Disorder, Chr Max Sinusitits Patient Data Age: 34 Gender: F Height: 1.6 m Weight: 93.7 kg Last Vital Signs Temp 36.4 C 08/11/25 06:05 Pulse 102 H 08/11/25 06:05 Resp 14 08/11/25 06:05 Pulse Ox 99 08/11/25 06:05 Allergies Allergy/AdvReac Type Severity Reaction Status Date / Time doxycycline Allergy Mild Vomiting Verified 08/02/25 14:39 metoprolol Allergy Mild Cough Verified 08/02/25 14:39 Home Medications ?Medication ?Instructions ?Recorded ?Confirmed ?Type albuterol 90 mcg-budesonide 80 2 inh inhalation ONCE 05/15/25 08/02/25 History mcg/actuation HFA aerosol inhaler (Airsupra) fluticasone furoate 200 1 inh inhalation DAILY 08/02/25 08/02/25 History mcg-vilanterol 25 mcg/dose inhalation powder (Breo Ellipta) hydrochlorothiazide 12.5 mg capsule 12.5 mg PO DAILY 08/02/25 08/02/25 History Laboratory Tests 08/11/25 06:32 POC Urine HCG, Qual Negative (Negative) Patient hx anesthesia problems: post op nausea/vomiting Family hx anesthesia problems: none Results Review: All pre-operative results and documents have been reviewed as part of the pre-operative evaluation. [facility] Past Medical History Medical History Broken arm arm was reset Hx of lipoma ADHD Irritable bowel syndrome Hypertension Asthma Anxiety Surgical History Surgical History Hx of tonsillectomy and adenoids Hx of myringotomy x4 in left ear / x3 in right ear Hx of cholecystectomy Family History Family History Mother Thyroid disorder Hypertension Cerebrovascular accident Depression Anxiety Cancer Father Cancer Hypertension Diabetes mellitus Depression Anxiety Sibling Diabetes mellitus Depression Anxiety Grandparent Heart problem Hypertension Social History Social History Social History: Caffeine - Daily Years smoked: 14 Smoking status: Current every day smoker Tobacco type: cigarettes Alcohol intake: never Substance use: former Substance use type: marijuana Do You Feel Safe in your Home?: Yes Lack of Transportation: No Lack of Food: Never True Current Housing: I Have Housing Concerned About Future Housing: No Difficulty Paying Gas/Electric Bills: No Difficulty Paying for Meds: No Currently Unemployed: No Education: Bachelor's Degree Difficulty w/ Childcare or Family Care: No Living arrangements: with family Spiritual care concerns: No Anes - Eval Final PreProcedure Day of Procedure 08/11/25 06:45 Patient weight: obese Heart: regular rate and rhythm Lungs: clear to auscultation Airway: Mallampati scale class II Neurological: alert and oriented Last oral intake: >/= 8 hours ASA classification: III Emergent: no Anesthetic plan: proceed Anesthesia type and monitoring: general ETT and standard monitoring Results Review: All pre-operative results and documents have been reviewed as part of the pre-operative evaluation. Informed Consent: The patient's anesthetic plan and its attendant risks and benefits were discussed with the patient/family/POA. Questions were solicited and answers provided to the satisfaction of the patient/family/POA.
--- NOTE | 2025-08-11 06:55 | PM.IMHP ---
H&P: HPI History of Present Illness Date/Time: 08/11/25 06:55 Chief Complaint: nasal congestion Review of Systems Review of Systems: All systems reviewed & are unremarkable except as noted in HPI and below Constitutional: Constitutional: Reports as per HPI ENT: Reports as per HPI Respiratory: Respiratory: Reports as per HPI Gastrointestinal: Gastrointestinal: Reports as per HPI COUNT INCLUDES THE [facility] Past Medical History Medical History (Updated 08/11/25 @ 06:59 by Krupa Garcia MD) Dysfunction of right eustachian tube Chronic maxillary sinusitis Broken arm arm was reset Hx of lipoma ADHD Irritable bowel syndrome Hypertension Asthma Anxiety Surgical History Surgical History Hx of tonsillectomy and adenoids Hx of myringotomy x4 in left ear / x3 in right ear Hx of cholecystectomy Family History Family History Mother Thyroid disorder Hypertension Cerebrovascular accident Depression Anxiety Cancer Father Cancer Hypertension Diabetes mellitus Depression Anxiety Sibling Diabetes mellitus Depression Anxiety Grandparent Heart problem Hypertension Social History Social History Social History: Caffeine - Daily Years smoked: 14 Smoking status: Current every day smoker Tobacco type: cigarettes Alcohol intake: never Substance use: former Substance use type: marijuana Do You Feel Safe in your Home?: Yes Lack of Transportation: No Lack of Food: Never True Current Housing: I Have Housing Concerned About Future Housing: No Difficulty Paying Gas/Electric Bills: No Difficulty Paying for Meds: No Currently Unemployed: No Education: Bachelor's Degree Difficulty w/ Childcare or Family Care: No Living arrangements: with family Spiritual care concerns: No Meds Home Medications and Allergies Home Medications ?Medication ?Instructions ?Recorded ?Confirmed ?Type albuterol 90 mcg-budesonide 80 2 inh inhalation ONCE 05/15/25 08/02/25 History mcg/actuation HFA aerosol inhaler (Airsupra) fluticasone furoate 200 1 inh inhalation DAILY 08/02/25 08/02/25 History mcg-vilanterol 25 mcg/dose inhalation powder (Breo Ellipta) hydrochlorothiazide 12.5 mg capsule 12.5 mg PO DAILY 08/02/25 08/02/25 History Allergies Allergy/AdvReac Type Severity Reaction Status Date / Time doxycycline Allergy Mild Vomiting Verified 08/02/25 14:39 metoprolol Allergy Mild Cough Verified 08/02/25 14:39 Vital Signs Vital Signs - 24 hr 08/11/25 06:05 08/11/25 06:49 Temperature 36.4 C Pulse Rate 102 H Respiratory Rate 14 Blood Pressure 149/90 H Pulse Oximetry 99 Exam Const: General: cooperative, healthy appearing, comfortable, no acute distress, well developed, alert, awake and Physically active Orientation/consciousness: oriented to person, oriented to place, oriented to time and patient oriented x3 HENMT: Head: normocephalic and atraumatic Ears: external ears normal and EAC's normal Face/Nose/Sinus: Normal external nose present and Normal nares present Mouth: Yes Normal oral and palatal mucosa present, Yes lip normal and Yes tongue normal Other: deviated nasal spetum Eyes: General: appearance normal, both eyes and all related structures Neck: Neck: normal visual inspection, full ROM and trachea midline Resp: Effort & Inspection: normal respiratory effort and able to speak in complete sentences Cardio: Rate: regular rate Neuro: General: oriented to person, oriented to place, oriented to time and patient oriented x3 Assessment and Plan Assessment and plan (1) Chronic maxillary sinusitis: Code(s): J32.0 - Chronic maxillary sinusitis Status: Acute (2) Dysfunction of right eustachian tube: Code(s): H69.91 - Unspecified Eustachian tube disorder, right ear Status: Acute Plan Plan 34-year-old female with deviated nasal septum, right side eustachian tube dysfunction, right-sided hearing difficulty, left nasal vestibule wart, right-sided nasopharyngeal mass and allergic rhinitis with chronic sinusitis. Procedure: Septoplasty Submucous resection of inferior turbinate, partial or complete, any method ,bilateral Fracture nasal inferior turbinate,bilateral maxillary antrostomy,right side Nasopharyngeal mass biopsy Sabrina bullosa resection bilateral right myringotomy and grommet insertion
--- NOTE | 2025-08-11 07:00 | WPDHPUPDATE1 ---
History and Physical Update Update Date/Time: 08/11/25 07:00 History and Physical has been reviewed, including an updated exam of the patient. There are NO changes in the patient's condition. Risks, benefits, and alternatives have been discussed and questions answered. Patient agrees to proceed with procedure. Procedure: Septoplasty Submucous resection of inferior turbinate, partial or complete, any method ,bilateral Fracture nasal inferior turbinate,bilateral maxillary antrostomy,right side Nasopharyngeal mass biopsy Sabrina bullosa resection bilateral right myringotomy and grommet insertion
[2025-08-11] MEDS: SCOPOLAMINE 1 MG PATCH 1 PATCH TRANSDERM (07:02)
[2025-08-11] MEDS: TRANEXAMIC ACID 1,000MG/ISO100 1,000 MG/100 ML BAG 200 MG IVPB (07:32)
[2025-08-11] MEDS: ceFAZolin 2 GM in SODIUM CHLORIDE 0.9% IV 50 ML 100 ML IVPB (07:32)
[2025-08-11] MEDS: TRIAMCINOLONE ACET INJ 40 MG/ML VIAL XX (08:23)
[2025-08-11] MEDS: COCAINE HCL (*CRX) 4% TOP SOLN 4 ML VIAL 1 APPLIC TOPICAL (08:24)
[2025-08-11] MEDS: OXYMETAZOLINE HCL 0.05% NAS 15 ML BTL (*BKC) 1 SPRAY NASAL (08:28)
[2025-08-11] MEDS: LIDO 1%/EPINEPHRINE 1:100,000 20 ML VIAL 15 ML INFILTRATE (08:28)
--- NOTE | 2025-08-11 09:09 | S_PTH ---
PATIENT: Giuliana Fitch LOC: [facility] U#:[id number] AGE/SX: 34/F ROOM: RE08/11/[address]: Krupa Garcia MD : 1990 BED: DIS: 08/11/2025 SPEC #: [id number] RECD: 08/11/25 09:43 STATUS: THANH REQ #: [id number] AYO: 08/11/25 09:[address]: Krupa Garcia DEPT: [facility] Surgical RECD BY: Indu Upton ENTERED: 08/11/25 09:43 SP TYPE: Surgical OTHR DR: John PainterMD Tissues: A - Biopsy Procedures: Hematoxylin and Eosin Stain Gross and Microscopic Level 4
--- NOTE | 2025-08-11 10:15 | P.OP_ITS ---
Procedure Note - Detailed Date of Procedure 08/11/25 Pre-op Diagnosis chronic sinusitis deviated nasal septum hypertrophy of inferior turbinates right Eustachian tube dysfunction nasopharyngeal mass Post-op Diagnosis Same Procedure Performed Septoplasty Submucous resection of inferior turbinate,bilateral Fracture nasal inferior turbinate,bilateral maxillary antrostomy,right side Nasopharyngeal mass biopsy Hussein bullosa resection bilateral right myringotomy and grommet insertion Surgeon Krupa Garcia MD Anesthesia General Description of Procedure The patient was seen in the preoperative area, informed consent was checked and confirmed. The patient was taken to the operating room, sedated and placed under general anesthesia with an endotracheal tube . Eyes were taped and were prepped and draped in the usual sterile fashion. The right ear was examined with the binocular microscope and cleaned of cerumen with a curette. The tympanic membrane was retracted . A radial myringotomy was made in the anterior-inferior quadrant. no fluid could be seen in the middle ear . A tympanostomy tube collar button was inserted and positioned with forceps and pick. Topical antibiotic drops were applied. The nose was examined, and the left anterior septum was injected with 1% lidocaine with 1:100,000 epinephrine. Dc incision was made and a mucoperichondrial flap was elevated to expose the quadrangular cartilage and bony septum. Incision was then made anteriorly on the quadrangular cartilage to elevate the contralateral mucoperichondrial flap. The deviated quadrangular cartilage was excised with a Debbie knife. At least 1 cm of dorsal and caudal strut of quadrangular was left in place. We resected the deviated bony septum with a Lowell-Stubbs and a pituitary forceps. After adequate resection of the posterior-inferior bony septum, the mucoperichondrial Flap was laid back in anatomic position.04 chromic was used to suture the incision ,Figueroa splints were placed in both nasal cavity and sutured in place with nylon the nasopharynx was examined with 0 scope ,2 biopsies were taken from the nasopharynx using biopsy forceps I proceeded to the endoscopic sinus procedure starting on the right side. The agger nasi area was injected with 1% lidocaine with 1:100,000 epinephrine. The body of the middle turbinate was injected with 1% lidocaine with 1:100,000 epinephrine. The middle turbinate was gently medialized and the uncinectomy was performed with a pediatric Wong backbiter and the uncinectomy was completed with a shaver from the inferior-posterior attachment to the superior anterior attachment. Maxillary antrum was re-examined with a 30-degree scope. A ball probe was passed into the antrum and was further widened with a backbiter in the anterior-inferior and posterior aspect. The right hussein bullosa was resected with a shaver. The lateral wall of the hussein bullosa was resected with care taken to protect its medial wall and middle turbinate attachment to the lateral nasal wall and the skull base.? The left? ?hussein bullosa was resected with a shaver. The lateral wall of the hussein bullosa was resected with care taken to protect its medial wall and middle turbinate attachment to the lateral nasal wall and the skull base. We proceeded with submucosal inferior turbinate reduction, starting on the right side, a stab incision was made anterior mucosa of inferior turbinate. Submucosal pocket was created along the length of the inferior turbinate and the microdebrider blade 2mm thick was introduced anteriorly and into the whole submucosal pocket. Microdebrider was then used to remove the hypertrophied bony parts of anterior turbinate head and soft tissue with the outer layer intact. Th e residual inferior turbinate was then out fractured using Boies elevator. We proceeded to the left side. A stab incision was made on the anterior mucosa of inferior turbinate. Submucosal pocket was created along the length of the inferior turbinate and the microdebrider blade 2 mm thick was introduced anteriorly and into the whole submucosal pocket. Microdebrider was then used to remove the hypertrophied bony parts of anterior turbinate head and soft tissue with the outer layer intact. The residual inferior turbinate was then out fractured using Boies elevator. Pledgets were removed from ethmoid cavities, PosiSep X BAM Hemostat Dressing sponges were placed in ethmoid cavities bilaterally and infiltrated with a mixture of kenalog and cefazolin. The nose was then suctioned clean and at this point the care of the patient was then transferred to the anesthesiologist where the patient emerged from general anesthesia without complication. Estimated Blood Loss 10 (ml) Drains No Packing Yes (merocel packing ) Pathology Yes (nasopharynx ) Complications No immediate complications Condition Stable Disposition PACU [facility] Billing Surgery - Charge Forward: Surgery Billing
[2025-08-11] MEDS: methylPREDNISolone ACETATE 40 MG/ML VIAL 20 MG IM (10:59)
[2025-08-11] MEDS: ONDANSETRON INJ 4 MG/2 ML VIAL IV PUSH (11:08)
[2025-08-11] MEDS: MIDAZOLAM HCL (*CRX) 2 MG/2 ML VIAL IV PUSH (13:49)
== END 2025-08-11 15:08 | disposition home or self-care (01) ==
PROVIDERS: PCP Family Medicine; Visit Provider Otolaryngology Otolaryngology/Facial Plastic Surgery
PROC: (CPT 31256; principal; 2025-08-11 07:30)
PROC: (CPT 30520; 2025-08-11 07:30)
PROC: (CPT 31256; 2025-08-11 07:30)
DX: J32.0 Chronic maxillary sinusitis (principal); J34.3 Hypertrophy of nasal turbinates; J34.2 Deviated nasal septum; J39.2 Other diseases of pharynx; H69.91 Unspecified Eustachian tube disorder, right ear; F17.210 Nicotine dependence, cigarettes, uncomplicated; E66.9 Obesity, unspecified; Z68.36 Body mass index [BMI] 36.0-36.9, adult
CPT/HCPCS: 31256; 61782; 31240; 30520; 30140; 69436; 88305; J0690; A9270; J0360; J1010; J1100; J1171; J1200; J2003; J2004; J2250; J2405; J2704; J3010; J3290; J3301; J7050; J7120